=== PATIENT | female | born 1985 | race Caucasian/White ===

== ENCOUNTER 2017-02-24 13:49 | Inpatient (IN) | payer OTHER ==
[2017-02-24 14:17] VITALS: BMI 26.4
--- NOTE | 2017-02-24 15:33 | HP ---
Admission ROS [facility] Chief Complaint: I was at [facility] detox for 5 days and here for rehab now. Allergies/Adverse Reactions: Allergies Allergy/AdvReac Type Severity Reaction Status Date / Time No Known Allergies Allergy Verified 02/24/17 14:30 History of Present Illness: pt is a 31yr old female with a history of heroin and xanax dependence seeking detox for treatment. pt was on a suboxone maintenance last taken yesterday was on it while in care home and now wants to continue the maintenance. pt states she prescribed suboxone from psych Dr. Judd at [facility] for maintenance. Exam Limitations: No Limitations - Ebola screening Have you traveled outside of the country in the last 21 days: No (N) Have you had contact with anyone from an Ebola affected area: No Have you been sick,other than usual withdrawal symptoms: No Do you have a fever: No - Review of Systems Constitutional: Chills, Diaphoresis, Loss of Appetite EENT: reports: Tearing, Nose Congestion Respiratory: reports: No Symptoms reported Cardiac: reports: No Symptoms Reported GI: reports: Poor Appetite, Poor Fluid Intake : reports: No Symptoms Reported Musculoskeletal: reports: Back Pain Integumentary: reports: Flushing, Sweating Endocrine: reports: Excessive Sweating, Flushing, Intolerance to Cold, Intolerance to Heat Hematology: reports: No Symptoms Reported Psychiatric: reports: Judgement Intact, Mood/Affect Appropiate, Orientated x3, Agitated, Anxious Other Systems: Reviewed and Negative Patient History - Patient Medical History Hx Anemia: No Hx Asthma: No Hx Chronic Obstructive Pulmonary Disease (COPD): No Hx Cancer: No Hx Cardiac Disorders: No Hx Congestive Heart Failure: No Hx Hypertension: No Hx Hypercholesterolemia: No Hx Pacemaker: No HX Cerebrovascular Accident: No Hx Seizures: No Hx Dementia: No Hx Diabetes: No Hx Gastrointestinal Disorders: No Hx Liver Disease: No Hx Genitourinary Disorders: No Hx Sexually Transmitted Disorders: No Hx Renal Disease (ESRD): No Hx Thyroid Disease: No Hx Human Immunodeficiency Virus (HIV): No Hx Hepatitis C: No Hx Depression: Yes Hx Suicide Attempt: No (denies) Hx Bipolar Disorder: Yes Hx Schizophrenia: No - Patient Surgical History Past Surgical History: Yes Hx Neurologic Surgery: No Hx Cataract Extraction: No Hx Cardiac Surgery: No Hx Lung Surgery: No Hx Breast Surgery: Yes (LEFT 2005) Hx Breast Biopsy: No Hx Abdominal Surgery: No Hx Appendectomy: No Hx Cholecystectomy: No Hx Genitourinary Surgery: No Hx Section: No Hx Orthopedic Surgery: No Hx Hysterectomy: No Anesthesia Reaction: No - PPD History Previous Implant?: Yes Documented Results: Negative w/o proof PPD to be Administered?: Yes - Reproductive History Patient is a Female of Child Bearing Age (11 -55 yrs old): Yes Last Menstrual Period: 02/19/17 Patient : No - Smoking Cessation Smoking history: Current every day smoker Have you smoked in the past 12 months: Yes Aproximately how many cigarettes per day: 20 Cigars Per Day: 0 Hx Chewing Tobacco Use: No Initiated information on smoking cessation: Yes 'Breaking Loose' booklet given: 02/24/17 - Substance & Tx. History Substance Use Type: Heroin, Opiates, Prescribed Hx Substance Use Treatment: [facility]) - Substances Abused Heroin Route: Inhalation Frequency: Daily Amount used: 30 bags Age of first use: 28 Date of Last Use: 02/22/17 Family Disease History - Family Disease History Family History: Denies Admission Physical Exam [facility] - Vital Signs Vital Signs: Vital Signs - 24 hr 02/24/17 14:12 Temperature 97.8 F Pulse Rate 103 H Respiratory 18 Rate Blood Pressure 120/72 - Physical General Appearance: Yes: Appropriately Dressed, Moderate Distress, Tremorous, Irritable, Sweating, Anxious HEENTM: Yes: Hearing grossly Normal, Normal Voice, Rhinorrhea Respiratory: Yes: Lungs Clear, Normal Breath Sounds, No Respiratory Distress Neck: Yes: No masses,lesions,Nodules Breast: Yes: Within Normal Limits Cardiology: Yes: Regular Rhythm, Regular Rate, S1, S2 Abdominal: Yes: Normal Bowel Sounds Genitourinary: Yes: Within Normal Limits Back: Yes: Normal Inspection Musculoskeletal: Yes: full range of Motion Extremities: Yes: Normal Capillary Refill, Non-Tender, Tremors Neurological: Yes: Fully Oriented, Alert, Normal Response Integumentary: Yes: Normal Color Lymphatic: Yes: Within Normal Limits - Diagnostic (1) Alcohol dependence in early, early partial, sustained full, or sustained partial remission Current Visit: Yes Status: Chronic (2) Heroin use disorder, moderate, in early remission, dependence Current Visit: Yes Status: Chronic (3) Xanax use disorder, moderate, in early remission, dependence Current Visit: Yes Status: Chronic (4) Marijuana dependence Current Visit: Yes Status: Chronic (5) Nicotine dependence Current Visit: Yes Status: Chronic Qualifiers: Nicotine product type: cigarettes Substance use status: uncomplicated Qualified Code(s): F17.210 - Nicotine dependence, cigarettes, uncomplicated Cleared for Admission [facility] - Detox or Rehab [facility] Level of Care: Medically Managed Claeared for Rehab Admission: Yes [facility] Breath Alcohol Content Breath Alcohol Content: 0 Urine Pregancy Test - Result Urine Test Results: Negative- NO Line Present Urine Drug Screen - Results Drug Screen Negative: No Urine Drug Screen Results: BZO-Benzodiazepines Inpatient Rehab Admission - Initial Determination Are CD services needed?: Yes Free of communicable disease: Yes Not in need of hospitalization: Yes - Rehab Admission Criteria Previous failed treatment: Yes Lacks judgement: Yes
[2017-02-24] MEDS ORDERED: P-EPHED 60MG/TRIPROLIDI 2.5MG TABLET PO PRN (15:38)
[2017-02-24] MEDS ORDERED: ACETAMINOPHEN 325 MG TABLET (FP) PO PRN (15:38)
[2017-02-24] MEDS ORDERED: MENTHOL/PHENOL 1 EACH UD MM PRN (15:38)
[2017-02-24] MEDS ORDERED: MAGNESIUM CITRATE 300 ML BOTTLE PO PRN (15:38)
[2017-02-24] MEDS ORDERED: LOPERAMIDE HCL 2 MG CAPSULE PO PRN (15:38)
[2017-02-24] MEDS ORDERED: hydrOXYzine PAMOATE 50 MG CAPSULE (FP) PO PRN (15:38)
[2017-02-24] MEDS ORDERED: MAG HYDROX/AL HYDROX/SIMETH 30 ML UNIT-DOSE CUP PO PRN (15:38)
[2017-02-24] MEDS ORDERED: guaiFENesin/D-METHORPHAN HB 10 ML UNIT-DOSE CUPS PO PRN (15:38)
[2017-02-24] MEDS ORDERED: MAGNESIUM HYDROX 2400MG/30ML ORAL SUSPENSION 30 ML CUP PO PRN (15:38)
[2017-02-24] MEDS ORDERED: BUPRENORPHINE/NALOXONE 2 MG/0.5 MG FILM PACKET SL ONE (16:45)
[2017-02-24 17:44] LABS: MCH 36.1 pg (25.7-33.7); MCHC 34.7 g/dl (32.0-36.0); MEAN CELL VOLUME 103.9 fl (80-96); MEAN PLT VOLUME 8.8 fl (7.5-11.1); PLATELET COUNT 282 K/MM3 (134-434); RDW 12.3 % (11.6-15.6); WHITE BLOOD COUNT 10.9 K/mm3 (4.0-10.0)
[2017-02-24 18:13] LABS: ALBUMIN 3.3 g/dl (3.4-5.0); ALK PHOS 78 U/L (45-117); ANION GAP 7 (8-16); BILIRUBIN,TOTAL 0.1 mg/dL (0.2-1.0); CALCIUM 8.3 mg/dL (8.5-10.1); CO2 30 mmol/L (21-32); CREATININE 0.6 mg/dL (0.55-1.02); GLUCOSE,RANDOM 104 mg/dL (74-106); SGOT/AST 31 U/L (15-37); SGPT/ALT 23 U/L (12-78); TOT PROT 6.8 g/dl (6.4-8.2)
[2017-02-24] MEDS ORDERED: TUBERCULIN PPD 5 TU/0.1ML VIAL ID ONE (18:28)
--- NOTE | 2017-02-24 18:32 | PN ---
[facility] Progress Note Note: received nurse call that the patient needs ppd
[2017-02-24] MEDS ORDERED: QUEtiapine FUMARATE 400 MG TABLET PO ONE (22:15)
[2017-02-24] MEDS: THIAMINE HCL 100 MG TABLET (FP) PO SCH (22:29)
[2017-02-24 23:30] LABS: URINE APPEARANCE CLOUDY; URINE BILIRUBIN NEGATIVE (NEGATIVE); URINE BLOOD NEGATIVE (NEGATIVE); URINE COLOR YELLOW; URINE GLUCOSE (UA) NEGATIVE (NEGATIVE); URINE KETONE NEGATIVE (NEGATIVE); URINE NITRITE NEGATIVE (NEGATIVE); URINE PROTEIN NEGATIVE (NEGATIVE); URINE UROBILINOGEN NEGATIVE mg/dL (0.2-1.0)
[2017-02-25] MEDS: NICOTINE 21 MG/24 HOURS TOPICAL PATCH TD SCH (09:44)
[2017-02-25] MEDS: PRENATAL VITAMINS W/ FOLIC ACID TABLET (FP) PO SCH (09:44)
[2017-02-25] MEDS ORDERED: BUPRENORPHINE/NALOXONE 2 MG/0.5 MG FILM PACKET SL SCH (10:00)
--- NOTE | 2017-02-25 10:27 | HP ---
Psychiatrist Admission - Data Date of interview: 02/25/17 [facility] Identifying data: This is the second admission to [address] [place] [address] FOR THIS 31 years old single mother of 2 yo daughter,resides with her mother,empoyed as a hair dressor. Medical History: unremarkable Psychiatric History: Patient reports some sleeping difficulties on and off, states thating that SEroquel helped to fall asleep .Patient was obtaining SAeroquel 400 mg po hs from her PCP,but states that last night she was drowsy after taking 400 mg po hs and asks to redusce the dose. Physical/Sexual Abuse/Trauma History: denies Vital Signs: Vital Signs - 24 hr 02/24/17 02/25/17 02/25/17 14:12 00:30 03:30 Temperature 97.8 F Pulse Rate 103 H Respiratory 18 16 16 Rate Blood Pressure 120/72 02/25/17 07:11 Temperature 98.5 F Pulse Rate 93 H Respiratory 16 Rate Blood Pressure 96/62 Allergies/Adverse Reactions: Allergies Allergy/AdvReac Type Severity Reaction Status Date / Time No Known Allergies Allergy Verified 02/24/17 14:30 Date of last physical exam: 02/24/17 Concur with the findings of this exam: Yes - Substance Abuse/Tx History Hx Alcohol Use: Yes (cengmi0da since 24 yo,6 packs daily) Hx Substance Use: Yes (heroin since 29 yo,sniffing 5 bags daily,Xanax since 27 yo 2 mg 5 times da ) Substance Use Type: Alcohol, Heroin, Marijuana, Tranquilizers Hx Substance Use Treatment: Yes (completed this program in Dec 2015) Mental Status Exam - Mental Status Exam Alert and Oriented to: Time, Place, Person Cognitive Function: Grossly Intact Patient Appearance: Well Groomed Mood: Euthymic Affect: Appropriate, Mood Congruent Patient Behavior: Appropriate, Cooperative Speech Pattern: Clear Voice Loudness: Normal Thought Process: Goal Oriented Thought Disorder: Not Present Hallucinations: Denies Suicidal Ideation: Denies Homicidal Ideation: Denies Insight/Judgement: Fair Sleep: Well Muscle strength/Tone: Normal Gait/Station: Normal Psychiatric Findings - Problem List ([place] 1, 2,3) (1) Nicotine dependence Current Visit: Yes Status: Chronic Qualifiers: Nicotine product type: cigarettes Substance use status: uncomplicated Qualified Code(s): F17.210 - Nicotine dependence, cigarettes, uncomplicated (2) Marijuana dependence Current Visit: Yes Status: Chronic (3) Anxiolytic dependence Current Visit: Yes Status: Acute (4) Alcohol dependence in early, early partial, sustained full, or sustained partial remission Current Visit: Yes Status: Chronic (5) Opioid dependence Current Visit: Yes Status: Chronic Qualifiers: Substance use status: uncomplicated Qualified Code(s): F11.20 - Opioid dependence, uncomplicated (6) Substance induced mood disorder Current Visit: Yes Status: Chronic - Initial Treatment Plan Initial Treatment Plan: Seroquel 300 mg po hs.Will monitor progress.
--- NOTE | 2017-02-25 10:32 | EKG ---
Test Reason : Blood Pressure : / mmHG Vent. Rate : 093 BPM Atrial Rate : 093 BPM P-R Int : 176 ms QRS Dur : 102 ms QT Int : 376 ms P-R-T Axes : 057 035 054 degrees QTc Int : 467 ms NORMAL SINUS RHYTHM INCOMPLETE RIGHT BUNDLE BRANCH BLOCK BORDERLINE ECG NO PREVIOUS ECGS AVAILABLE Confirmed by RADHA SORTO MD ([id number]) on 02/25/2017 10:32:10 AM Referred By: MATTHIAS SHEPHERD Confirmed By:RADHA SORTO MD
--- NOTE | 2017-02-25 10:56 | PN ---
[facility] Progress Note (SOAP) Subjective: c/o opioid withdrawal sx s/p detox at [facility] - started on suboxone 2mg daily still has cravings and physical withdrawal sx, anxieyt, depression, fatigue and insomnia would like to increase dose Objective: 02/25/17 10:55 Vital Signs - 8 hr 02/25/17 02/25/17 03:30 07:11 Temperature 98.5 F Pulse Rate 93 H Respiratory 16 16 Rate Blood Pressure 96/62 Laboratory Tests 02/24/17 02/24/17 02/24/17 16:00 16:00 22:00 WBC 10.9 H D RBC 3.69 Hgb 13.3 Hct 38.3 MCV 103.9 H MCH 36.1 H MCHC 34.7 RDW 12.3 D Plt Count 282 MPV 8.8 D Sodium 137 Potassium 3.7 Chloride 100 Carbon Dioxide 30 Anion Gap 7 L BUN 11 D Creatinine 0.6 Creat Clearance w eGFR > 60 Random Glucose 104 D Calcium 8.3 L Total Bilirubin 0.1 L D AST 31 D ALT 23 D Alkaline Phosphatase 78 Total Protein 6.8 Albumin 3.3 L D Urine Color Yellow Urine Appearance Cloudy Urine pH 8.0 D Ur Specific [place] 1.009 Urine Protein Negative Urine Glucose (UA) Negative Urine Ketones Negative Urine Blood Negative Urine Nitrite Negative Urine Bilirubin Negative Urine Urobilinogen Negative Assessment: 02/25/17 10:55 lfts wnl, can increase dose- needs appointment scheduled for follow up at [facility]/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 risks and benefits discussed
[2017-02-25] MEDS ORDERED: BUPRENORPHINE/NALOXONE 2 MG/0.5 MG FILM PACKET SL ONE (10:57)
[2017-02-25 11:42] LABS: URINE LEUK ESTERASE TRACE (NEGATIVE)
[2017-02-25] MEDS: NICOTINE POLACRILEX 4 MG GUM BUC PRN ×2 (11:59→14:43)
[2017-02-25 12:41] LABS: URINE MUCUS FEW; URINE WBC 0-2 (0-5)
[2017-02-25] MEDS: GABAPENTIN 300 MG CAPSULE (FP) PO SCH ×2 (13:06→21:22)
[2017-02-25 13:14] LABS: URINE LEUK ESTERASE TRACE (NEGATIVE)
[2017-02-25 14:38] LABS: URINE MUCUS FEW; URINE WBC 0-2 (0-5)
[2017-02-25] MEDS: THIAMINE HCL 100 MG TABLET (FP) PO SCH (21:21)
[2017-02-25] MEDS: QUEtiapine FUMARATE 300 MG TABLET PO SCH (21:23)
[2017-02-25] MEDS ORDERED: QUEtiapine FUMARATE 400 MG TABLET PO SCH (22:00)
[2017-02-26] MEDS: GABAPENTIN 300 MG CAPSULE (FP) PO SCH ×3 (06:32→21:24)
[2017-02-26] MEDS: NICOTINE POLACRILEX 4 MG GUM BUC PRN ×5 (08:50→17:27)
[2017-02-26] MEDS: BUPRENORPHINE/NALOXONE 2 MG/0.5 MG FILM PACKET SL SCH (09:57)
[2017-02-26] MEDS: PRENATAL VITAMINS W/ FOLIC ACID TABLET (FP) PO SCH (09:57)
[2017-02-26] MEDS: NICOTINE 21 MG/24 HOURS TOPICAL PATCH TD SCH (09:57)
[2017-02-26] MEDS: COLLOIDAL OATMEAL 1 BAR EACH TP PRN (13:15)
[2017-02-26] MEDS: MINERAL OIL/PETROLAT/WATER TOPICAL CREAM 113 GM JAR TP SCH ×2 (15:49→21:25)
[2017-02-26] MEDS: QUEtiapine FUMARATE 300 MG TABLET PO SCH (21:24)
[2017-02-26] MEDS: THIAMINE HCL 100 MG TABLET (FP) PO SCH (21:24)
[2017-02-26] MEDS: CLINDAMYCIN PHOSPHATE 1% TOPICAL GEL 30 GM TUBE TP SCH (21:25)
[2017-02-27] MEDS: GABAPENTIN 300 MG CAPSULE (FP) PO SCH ×3 (06:30→21:38)
[2017-02-27] MEDS: NICOTINE POLACRILEX 4 MG GUM BUC PRN ×5 (06:31→18:32)
[2017-02-27] MEDS ORDERED: PT OWN MED DRAWER 7, Y5N ONE ×2 (08:32→19:24)
[2017-02-27] MEDS: PRENATAL VITAMINS W/ FOLIC ACID TABLET (FP) PO SCH (09:55)
[2017-02-27] MEDS: NICOTINE 21 MG/24 HOURS TOPICAL PATCH TD SCH (09:55)
[2017-02-27] MEDS: CLINDAMYCIN PHOSPHATE 1% TOPICAL GEL 30 GM TUBE TP SCH ×2 (09:56→21:38)
[2017-02-27] MEDS: MINERAL OIL/PETROLAT/WATER TOPICAL CREAM 113 GM JAR TP SCH ×2 (09:56→21:37)
[2017-02-27] MEDS: BUPRENORPHINE/NALOXONE 2 MG/0.5 MG FILM PACKET SL SCH (09:56)
[2017-02-27] MEDS ORDERED: BUPRENORPHINE/NALOXONE 2 MG/0.5 MG FILM PACKET SL ONE (14:19)
[2017-02-27] MEDS: THIAMINE HCL 100 MG TABLET (FP) PO SCH (21:38)
[2017-02-27] MEDS: QUEtiapine FUMARATE 400 MG TABLET PO SCH (21:39)
[2017-02-28] MEDS: GABAPENTIN 300 MG CAPSULE (FP) PO SCH ×3 (06:36→21:29)
[2017-02-28] MEDS ORDERED: PT OWN MED DRAWER 7, Y5N ONE (08:48)
[2017-02-28] MEDS: NICOTINE POLACRILEX 4 MG GUM BUC PRN ×5 (08:57→18:43)
[2017-02-28] MEDS: BUPRENORPHINE/NALOXONE 8 MG/2 MG FILM PACKET SL SCH (09:57)
[2017-02-28] MEDS: NICOTINE 21 MG/24 HOURS TOPICAL PATCH TD SCH (09:57)
[2017-02-28] MEDS: PRENATAL VITAMINS W/ FOLIC ACID TABLET (FP) PO SCH (09:57)
[2017-02-28] MEDS: CLINDAMYCIN PHOSPHATE 1% TOPICAL GEL 30 GM TUBE TP SCH ×2 (09:57→21:30)
[2017-02-28] MEDS: MINERAL OIL/PETROLAT/WATER TOPICAL CREAM 113 GM JAR TP SCH ×2 (09:58→21:29)
[2017-02-28] MEDS: BUPRENORPHINE/NALOXONE 2 MG/0.5 MG FILM PACKET SL SCH (11:20)
[2017-02-28] MEDS: THIAMINE HCL 100 MG TABLET (FP) PO SCH (21:28)
[2017-02-28] MEDS: QUEtiapine FUMARATE 400 MG TABLET PO SCH (21:29)
[2017-03-01] MEDS: GABAPENTIN 300 MG CAPSULE (FP) PO SCH ×3 (06:50→21:24)
[2017-03-01] MEDS: NICOTINE POLACRILEX 4 MG GUM BUC PRN ×4 (06:50→18:53)
[2017-03-01] MEDS ORDERED: PT OWN MED DRAWER 7, Y5N ONE ×2 (09:03→10:37)
[2017-03-01] MEDS: PRENATAL VITAMINS W/ FOLIC ACID TABLET (FP) PO SCH (10:21)
[2017-03-01] MEDS: BUPRENORPHINE/NALOXONE 8 MG/2 MG FILM PACKET SL SCH (10:21)
[2017-03-01] MEDS: NICOTINE 21 MG/24 HOURS TOPICAL PATCH TD SCH (10:21)
[2017-03-01] MEDS: MINERAL OIL/PETROLAT/WATER TOPICAL CREAM 113 GM JAR TP SCH ×2 (10:22→21:26)
[2017-03-01] MEDS: CLINDAMYCIN PHOSPHATE 1% TOPICAL GEL 30 GM TUBE TP SCH ×2 (10:22→21:26)
[2017-03-01] MEDS ORDERED: ONDANSETRON *ODT* 4 MG TABLET SL PRN (12:37)
[2017-03-01] MEDS ORDERED: MECLIZINE HCL 25 MG TABLET (FP) PO PRN (12:37)
[2017-03-01] MEDS: THIAMINE HCL 100 MG TABLET (FP) PO SCH (21:23)
[2017-03-01] MEDS: QUEtiapine FUMARATE 400 MG TABLET PO SCH (21:24)
[2017-03-02] MEDS: NICOTINE POLACRILEX 4 MG GUM BUC PRN ×6 (06:44→21:28)
[2017-03-02] MEDS: GABAPENTIN 300 MG CAPSULE (FP) PO SCH ×3 (06:44→21:26)
[2017-03-02] MEDS ORDERED: PT OWN MED DRAWER 7, Y5N ONE (08:32)
[2017-03-02] MEDS: PRENATAL VITAMINS W/ FOLIC ACID TABLET (FP) PO SCH (09:02)
[2017-03-02] MEDS: NICOTINE 21 MG/24 HOURS TOPICAL PATCH TD SCH (09:03)
[2017-03-02] MEDS: BUPRENORPHINE/NALOXONE 8 MG/2 MG FILM PACKET SL SCH (09:03)
[2017-03-02] MEDS: CLINDAMYCIN PHOSPHATE 1% TOPICAL GEL 30 GM TUBE TP SCH ×2 (09:03→21:27)
[2017-03-02] MEDS: MINERAL OIL/PETROLAT/WATER TOPICAL CREAM 113 GM JAR TP SCH ×2 (09:09→21:27)
[2017-03-02] MEDS: QUEtiapine FUMARATE 400 MG TABLET PO SCH (21:26)
[2017-03-02] MEDS: THIAMINE HCL 100 MG TABLET (FP) PO SCH (21:26)
[2017-03-02] MEDS: IBUPROFEN 400 MG TABLET (FP) PO PRN (21:28)
[2017-03-03] MEDS: GABAPENTIN 300 MG CAPSULE (FP) PO SCH ×3 (06:27→21:25)
[2017-03-03] MEDS: IBUPROFEN 400 MG TABLET (FP) PO PRN ×2 (06:28→13:12)
[2017-03-03] MEDS: NICOTINE POLACRILEX 4 MG GUM BUC PRN ×5 (06:28→21:25)
[2017-03-03] MEDS ORDERED: PT OWN MED DRAWER 7, Y5N ONE ×3 (08:30→19:54)
[2017-03-03] MEDS: NICOTINE 21 MG/24 HOURS TOPICAL PATCH TD SCH (09:06)
[2017-03-03] MEDS: PRENATAL VITAMINS W/ FOLIC ACID TABLET (FP) PO SCH (09:06)
[2017-03-03] MEDS: BUPRENORPHINE/NALOXONE 8 MG/2 MG FILM PACKET SL SCH (09:07)
[2017-03-03] MEDS: CLINDAMYCIN PHOSPHATE 1% TOPICAL GEL 30 GM TUBE TP SCH ×2 (09:07→21:27)
[2017-03-03] MEDS: MINERAL OIL/PETROLAT/WATER TOPICAL CREAM 113 GM JAR TP SCH ×2 (09:07→21:26)
--- NOTE | 2017-03-03 09:28 | PN ---
[facility] Progress Note Note: Was called by nurse to order Effexor 75 mg, as per reconciliation list. Chart reviewed 's admission note appreciated. Order was placed.
[2017-03-03] MEDS: VENLAFAXINE HCL 75 MG E.R. CAPSULES (FP) PO SCH (10:31)
[2017-03-03] MEDS ORDERED: BUPRENORPHINE/NALOXONE 2 MG/0.5 MG FILM PACKET SL ONE (15:37)
--- NOTE | 2017-03-03 15:37 | PN ---
[facility] Progress Note (SOAP) Subjective: would like to increase dose of suboxone, has cravings, desire to use, drug dreams - appot for [facility] scheduled for d/c Objective: 03/03/17 15:36 Vital Signs - 24 hr 03/03/17 03/03/17 03/03/17 00:30 03:30 07:08 Temperature 97.8 F Pulse Rate 78 Respiratory 18 18 18 Rate Blood Pressure 92/63 Laboratory Tests 02/24/17 02/24/17 02/24/17 16:00 16:00 16:00 WBC 10.9 H D RBC 3.69 Hgb 13.3 Hct 38.3 MCV 103.9 H MCH 36.1 H MCHC 34.7 RDW 12.3 D Plt Count 282 MPV 8.8 D Sodium 137 Potassium 3.7 Chloride 100 Carbon Dioxide 30 Anion Gap 7 L BUN 11 D Creatinine 0.6 Creat Clearance w eGFR > 60 Random Glucose 104 D Calcium 8.3 L Total Bilirubin 0.1 L D AST 31 D ALT 23 D Alkaline Phosphatase 78 Total Protein 6.8 Albumin 3.3 L D Urine Color Urine Appearance Urine pH Ur Specific [place] Urine Protein Urine Glucose (UA) Urine Ketones Urine Blood Urine Nitrite Urine Bilirubin Urine Urobilinogen Ur Leukocyte Esterase Urine RBC Urine WBC Ur Epithelial Cells Urine Mucus RPR Titer Nonreactive 02/24/17 02/24/17 22:00 22:00 WBC RBC Hgb Hct MCV MCH MCHC RDW Plt Count MPV Sodium Potassium Chloride Carbon Dioxide Anion Gap BUN Creatinine Creat Clearance w eGFR Random Glucose Calcium Total Bilirubin AST ALT Alkaline Phosphatase Total Protein Albumin Urine Color Yellow Urine Appearance Cloudy Urine pH 8.0 D Ur Specific [place] 1.009 Urine Protein Negative Urine Glucose (UA) Negative Urine Ketones Negative Urine Blood Negative Urine Nitrite Negative Urine Bilirubin Negative Urine Urobilinogen Negative Ur Leukocyte Esterase Trace H Urine RBC No Result Required. No Result Required. Urine WBC 0-2 0-2 Ur Epithelial Cells Few Few Urine Mucus Few Few RPR Titer Assessment: 03/03/17 15:37protracted opioid withdrawal and cravings - increase dose to 12mg daily.
[2017-03-03] MEDS: CYCLOBENZAPRINE HCL 10 MG TABLET (FP) PO SCH ×2 (16:02→21:25)
[2017-03-03] MEDS: THIAMINE HCL 100 MG TABLET (FP) PO SCH (21:25)
[2017-03-03] MEDS: AMITRIPTYLINE HCL 25 MG TABLET (FP) PO SCH (21:25)
[2017-03-03] MEDS: QUEtiapine FUMARATE 400 MG TABLET PO SCH (21:25)
[2017-03-04] MEDS: IBUPROFEN 400 MG TABLET (FP) PO PRN (06:31)
[2017-03-04] MEDS: GABAPENTIN 300 MG CAPSULE (FP) PO SCH ×3 (06:31→21:26)
[2017-03-04] MEDS: CYCLOBENZAPRINE HCL 10 MG TABLET (FP) PO SCH ×3 (06:31→21:26)
[2017-03-04] MEDS: NICOTINE POLACRILEX 4 MG GUM BUC PRN ×4 (06:32→16:38)
[2017-03-04] MEDS: PRENATAL VITAMINS W/ FOLIC ACID TABLET (FP) PO SCH (10:11)
[2017-03-04] MEDS: VENLAFAXINE HCL 75 MG E.R. CAPSULES (FP) PO SCH (10:11)
[2017-03-04] MEDS: CLINDAMYCIN PHOSPHATE 1% TOPICAL GEL 30 GM TUBE TP SCH ×2 (10:11→21:28)
[2017-03-04] MEDS: BUPRENORPHINE HCL/NALOXONE 12 MG-3 MG SL FILM PACKET SL SCH (10:11)
[2017-03-04] MEDS: NICOTINE 21 MG/24 HOURS TOPICAL PATCH TD SCH (10:11)
[2017-03-04] MEDS: MINERAL OIL/PETROLAT/WATER TOPICAL CREAM 113 GM JAR TP SCH ×2 (10:12→23:29)
[2017-03-04] MEDS ORDERED: PT OWN MED DRAWER 7, Y5N ONE ×2 (10:58→11:05)
[2017-03-04] MEDS: THIAMINE HCL 100 MG TABLET (FP) PO SCH (21:26)
[2017-03-04] MEDS: AMITRIPTYLINE HCL 25 MG TABLET (FP) PO SCH (21:26)
[2017-03-04] MEDS: QUEtiapine FUMARATE 400 MG TABLET PO SCH (21:26)
[2017-03-05] MEDS: CYCLOBENZAPRINE HCL 10 MG TABLET (FP) PO SCH ×3 (06:46→21:25)
[2017-03-05] MEDS: IBUPROFEN 400 MG TABLET (FP) PO PRN (06:46)
[2017-03-05] MEDS: GABAPENTIN 300 MG CAPSULE (FP) PO SCH ×3 (06:46→21:25)
[2017-03-05] MEDS: NICOTINE POLACRILEX 4 MG GUM BUC PRN ×3 (06:47→13:04)
[2017-03-05] MEDS: BUPRENORPHINE HCL/NALOXONE 12 MG-3 MG SL FILM PACKET SL SCH (09:52)
[2017-03-05] MEDS: NICOTINE 21 MG/24 HOURS TOPICAL PATCH TD SCH (09:52)
[2017-03-05] MEDS: PRENATAL VITAMINS W/ FOLIC ACID TABLET (FP) PO SCH (09:52)
[2017-03-05] MEDS: VENLAFAXINE HCL 75 MG E.R. CAPSULES (FP) PO SCH (09:52)
[2017-03-05] MEDS: MINERAL OIL/PETROLAT/WATER TOPICAL CREAM 113 GM JAR TP SCH ×2 (09:53→21:25)
[2017-03-05] MEDS: CLINDAMYCIN PHOSPHATE 1% TOPICAL GEL 30 GM TUBE TP SCH ×2 (10:05→21:25)
[2017-03-05] MEDS: AMITRIPTYLINE HCL 25 MG TABLET (FP) PO SCH (21:25)
[2017-03-05] MEDS: QUEtiapine FUMARATE 400 MG TABLET PO SCH (21:25)
[2017-03-05] MEDS: THIAMINE HCL 100 MG TABLET (FP) PO SCH (21:25)
[2017-03-06] MEDS: GABAPENTIN 300 MG CAPSULE (FP) PO SCH ×2 (06:38→21:34)
[2017-03-06] MEDS: CYCLOBENZAPRINE HCL 10 MG TABLET (FP) PO SCH ×2 (06:38→21:34)
[2017-03-06] MEDS: NICOTINE POLACRILEX 4 MG GUM BUC PRN ×4 (06:39→20:01)
[2017-03-06] MEDS ORDERED: PT OWN MED DRAWER 7, Y5N ONE (08:34)
[2017-03-06] MEDS: BUPRENORPHINE HCL/NALOXONE 12 MG-3 MG SL FILM PACKET SL SCH (10:09)
[2017-03-06] MEDS: MINERAL OIL/PETROLAT/WATER TOPICAL CREAM 113 GM JAR TP SCH ×2 (10:10→21:36)
[2017-03-06] MEDS: NICOTINE 21 MG/24 HOURS TOPICAL PATCH TD SCH (10:10)
[2017-03-06] MEDS: PRENATAL VITAMINS W/ FOLIC ACID TABLET (FP) PO SCH (10:10)
[2017-03-06] MEDS: CLINDAMYCIN PHOSPHATE 1% TOPICAL GEL 30 GM TUBE TP SCH ×2 (10:10→21:36)
[2017-03-06] MEDS: VENLAFAXINE HCL 75 MG E.R. CAPSULES (FP) PO SCH (10:10)
[2017-03-06] MEDS: THIAMINE HCL 100 MG TABLET (FP) PO SCH (21:34)
[2017-03-06] MEDS: AMITRIPTYLINE HCL 25 MG TABLET (FP) PO SCH (21:34)
[2017-03-06] MEDS: QUEtiapine FUMARATE 400 MG TABLET PO SCH (21:36)
[2017-03-07] MEDS: IBUPROFEN 400 MG TABLET (FP) PO PRN (06:46)
[2017-03-07] MEDS: GABAPENTIN 300 MG CAPSULE (FP) PO SCH ×4 (06:46→21:21)
[2017-03-07] MEDS: CYCLOBENZAPRINE HCL 10 MG TABLET (FP) PO SCH ×4 (06:47→21:21)
[2017-03-07] MEDS: NICOTINE POLACRILEX 4 MG GUM BUC PRN ×6 (06:47→21:24)
[2017-03-07] MEDS: VENLAFAXINE HCL 75 MG E.R. CAPSULES (FP) PO SCH (09:48)
[2017-03-07] MEDS: NICOTINE 21 MG/24 HOURS TOPICAL PATCH TD SCH (09:48)
[2017-03-07] MEDS: PRENATAL VITAMINS W/ FOLIC ACID TABLET (FP) PO SCH (09:48)
[2017-03-07] MEDS: CLINDAMYCIN PHOSPHATE 1% TOPICAL GEL 30 GM TUBE TP SCH ×2 (09:49→21:23)
[2017-03-07] MEDS: BUPRENORPHINE HCL/NALOXONE 12 MG-3 MG SL FILM PACKET SL SCH (09:51)
[2017-03-07] MEDS: MINERAL OIL/PETROLAT/WATER TOPICAL CREAM 113 GM JAR TP SCH ×2 (10:54→21:22)
[2017-03-07] MEDS ORDERED: PT OWN MED DRAWER 7, Y5N ONE (19:30)
[2017-03-07] MEDS: AMITRIPTYLINE HCL 25 MG TABLET (FP) PO SCH (21:21)
[2017-03-07] MEDS: QUEtiapine FUMARATE 400 MG TABLET PO SCH (21:21)
[2017-03-07] MEDS: THIAMINE HCL 100 MG TABLET (FP) PO SCH (22:05)
[2017-03-08] MEDS: CYCLOBENZAPRINE HCL 10 MG TABLET (FP) PO SCH ×3 (06:37→21:22)
[2017-03-08] MEDS: GABAPENTIN 300 MG CAPSULE (FP) PO SCH ×3 (06:38→21:22)
[2017-03-08] MEDS: NICOTINE POLACRILEX 4 MG GUM BUC PRN ×7 (06:38→21:23)
[2017-03-08] MEDS: BUPRENORPHINE HCL/NALOXONE 12 MG-3 MG SL FILM PACKET SL SCH (09:28)
[2017-03-08] MEDS: CLINDAMYCIN PHOSPHATE 1% TOPICAL GEL 30 GM TUBE TP SCH ×2 (09:28→21:22)
[2017-03-08] MEDS: NICOTINE 21 MG/24 HOURS TOPICAL PATCH TD SCH (09:28)
[2017-03-08] MEDS: MINERAL OIL/PETROLAT/WATER TOPICAL CREAM 113 GM JAR TP SCH ×2 (09:28→21:23)
[2017-03-08] MEDS: PRENATAL VITAMINS W/ FOLIC ACID TABLET (FP) PO SCH (09:28)
[2017-03-08] MEDS: VENLAFAXINE HCL 75 MG E.R. CAPSULES (FP) PO SCH (09:28)
[2017-03-08] MEDS: AMITRIPTYLINE HCL 25 MG TABLET (FP) PO SCH (21:22)
[2017-03-08] MEDS: THIAMINE HCL 100 MG TABLET (FP) PO SCH (21:22)
[2017-03-08] MEDS: QUEtiapine FUMARATE 400 MG TABLET PO SCH (21:22)
[2017-03-09] MEDS: NICOTINE POLACRILEX 4 MG GUM BUC PRN ×6 (06:27→21:17)
[2017-03-09] MEDS: CYCLOBENZAPRINE HCL 10 MG TABLET (FP) PO SCH ×3 (06:27→21:15)
[2017-03-09] MEDS: GABAPENTIN 300 MG CAPSULE (FP) PO SCH ×3 (06:27→21:15)
[2017-03-09] MEDS: MINERAL OIL/PETROLAT/WATER TOPICAL CREAM 113 GM JAR TP SCH ×2 (09:48→21:17)
[2017-03-09] MEDS: BUPRENORPHINE HCL/NALOXONE 12 MG-3 MG SL FILM PACKET SL SCH (09:48)
[2017-03-09] MEDS: PRENATAL VITAMINS W/ FOLIC ACID TABLET (FP) PO SCH (09:48)
[2017-03-09] MEDS: VENLAFAXINE HCL 75 MG E.R. CAPSULES (FP) PO SCH (09:48)
[2017-03-09] MEDS: NICOTINE 21 MG/24 HOURS TOPICAL PATCH TD SCH (09:49)
[2017-03-09] MEDS: CLINDAMYCIN PHOSPHATE 1% TOPICAL GEL 30 GM TUBE TP SCH ×2 (09:50→21:17)
[2017-03-09] MEDS ORDERED: ALBUTEROL SO4 18 GM HFA INHALER IH PRN (14:21)
[2017-03-09] MEDS: THIAMINE HCL 100 MG TABLET (FP) PO SCH (21:15)
[2017-03-09] MEDS: QUEtiapine FUMARATE 400 MG TABLET PO SCH (21:15)
[2017-03-09] MEDS: AMITRIPTYLINE HCL 25 MG TABLET (FP) PO SCH (21:15)
[2017-03-10] MEDS: CYCLOBENZAPRINE HCL 10 MG TABLET (FP) PO SCH ×3 (06:29→21:29)
[2017-03-10] MEDS: GABAPENTIN 300 MG CAPSULE (FP) PO SCH ×3 (06:29→21:29)
[2017-03-10] MEDS: NICOTINE POLACRILEX 4 MG GUM BUC PRN ×5 (06:31→21:31)
[2017-03-10] MEDS: VENLAFAXINE HCL 75 MG E.R. CAPSULES (FP) PO SCH (10:21)
[2017-03-10] MEDS: CLINDAMYCIN PHOSPHATE 1% TOPICAL GEL 30 GM TUBE TP SCH ×2 (10:21→21:29)
[2017-03-10] MEDS: MINERAL OIL/PETROLAT/WATER TOPICAL CREAM 113 GM JAR TP SCH ×2 (10:21→21:29)
[2017-03-10] MEDS: NICOTINE 21 MG/24 HOURS TOPICAL PATCH TD SCH (10:21)
[2017-03-10] MEDS: PRENATAL VITAMINS W/ FOLIC ACID TABLET (FP) PO SCH (10:21)
[2017-03-10] MEDS: BUPRENORPHINE HCL/NALOXONE 12 MG-3 MG SL FILM PACKET SL SCH (11:34)
[2017-03-10] MEDS: QUEtiapine FUMARATE 400 MG TABLET PO SCH (21:29)
[2017-03-10] MEDS: THIAMINE HCL 100 MG TABLET (FP) PO SCH (21:29)
[2017-03-10] MEDS: AMITRIPTYLINE HCL 25 MG TABLET (FP) PO SCH (21:29)
[2017-03-11] MEDS: NICOTINE POLACRILEX 4 MG GUM BUC PRN ×4 (06:09→17:43)
[2017-03-11] MEDS: CYCLOBENZAPRINE HCL 10 MG TABLET (FP) PO SCH ×3 (06:09→21:12)
[2017-03-11] MEDS: GABAPENTIN 300 MG CAPSULE (FP) PO SCH ×3 (06:09→21:12)
[2017-03-11] MEDS: VENLAFAXINE HCL 75 MG E.R. CAPSULES (FP) PO SCH (09:41)
[2017-03-11] MEDS: PRENATAL VITAMINS W/ FOLIC ACID TABLET (FP) PO SCH (09:41)
[2017-03-11] MEDS: NICOTINE 21 MG/24 HOURS TOPICAL PATCH TD SCH (09:41)
[2017-03-11] MEDS: MINERAL OIL/PETROLAT/WATER TOPICAL CREAM 113 GM JAR TP SCH ×2 (09:41→21:13)
[2017-03-11] MEDS: BUPRENORPHINE HCL/NALOXONE 12 MG-3 MG SL FILM PACKET SL SCH (09:42)
[2017-03-11] MEDS: CLINDAMYCIN PHOSPHATE 1% TOPICAL GEL 30 GM TUBE TP SCH ×2 (09:42→21:13)
[2017-03-11] MEDS: QUEtiapine FUMARATE 400 MG TABLET PO SCH (21:12)
[2017-03-11] MEDS: AMITRIPTYLINE HCL 25 MG TABLET (FP) PO SCH (21:12)
[2017-03-11] MEDS: THIAMINE HCL 100 MG TABLET (FP) PO SCH (21:14)
[2017-03-12] MEDS: CYCLOBENZAPRINE HCL 10 MG TABLET (FP) PO SCH ×3 (06:10→21:26)
[2017-03-12] MEDS: GABAPENTIN 300 MG CAPSULE (FP) PO SCH ×3 (06:10→21:26)
[2017-03-12] MEDS: NICOTINE POLACRILEX 4 MG GUM BUC PRN ×5 (06:11→17:37)
[2017-03-12] MEDS: BUPRENORPHINE HCL/NALOXONE 12 MG-3 MG SL FILM PACKET SL SCH (10:38)
[2017-03-12] MEDS: NICOTINE 21 MG/24 HOURS TOPICAL PATCH TD SCH (10:38)
[2017-03-12] MEDS: PRENATAL VITAMINS W/ FOLIC ACID TABLET (FP) PO SCH (10:38)
[2017-03-12] MEDS: VENLAFAXINE HCL 75 MG E.R. CAPSULES (FP) PO SCH (10:38)
[2017-03-12] MEDS: MINERAL OIL/PETROLAT/WATER TOPICAL CREAM 113 GM JAR TP SCH ×2 (10:42→21:28)
[2017-03-12] MEDS: CLINDAMYCIN PHOSPHATE 1% TOPICAL GEL 30 GM TUBE TP SCH ×2 (10:44→21:28)
[2017-03-12] MEDS: COLLOIDAL OATMEAL 1 BAR EACH TP PRN (13:15)
[2017-03-12] MEDS: IBUPROFEN 400 MG TABLET (FP) PO PRN (13:18)
[2017-03-12] MEDS: AMITRIPTYLINE HCL 25 MG TABLET (FP) PO SCH (21:26)
[2017-03-12] MEDS: QUEtiapine FUMARATE 400 MG TABLET PO SCH (21:26)
[2017-03-12] MEDS: THIAMINE HCL 100 MG TABLET (FP) PO SCH (21:27)
[2017-03-12] MEDS ORDERED: PT OWN MED DRAWER 7, Y5N ONE (23:07)
[2017-03-13] MEDS: CYCLOBENZAPRINE HCL 10 MG TABLET (FP) PO SCH ×3 (06:49→21:30)
[2017-03-13] MEDS: GABAPENTIN 300 MG CAPSULE (FP) PO SCH ×3 (06:49→21:29)
[2017-03-13] MEDS: NICOTINE POLACRILEX 4 MG GUM BUC PRN ×5 (06:50→15:31)
[2017-03-13] MEDS ORDERED: PT OWN MED DRAWER 7, Y5N ONE ×2 (08:31→11:02)
[2017-03-13] MEDS: BUPRENORPHINE HCL/NALOXONE 12 MG-3 MG SL FILM PACKET SL SCH (10:14)
[2017-03-13] MEDS: PRENATAL VITAMINS W/ FOLIC ACID TABLET (FP) PO SCH (10:14)
[2017-03-13] MEDS: NICOTINE 21 MG/24 HOURS TOPICAL PATCH TD SCH (10:14)
[2017-03-13] MEDS: VENLAFAXINE HCL 75 MG E.R. CAPSULES (FP) PO SCH (10:14)
[2017-03-13] MEDS: CLINDAMYCIN PHOSPHATE 1% TOPICAL GEL 30 GM TUBE TP SCH ×2 (10:15→21:30)
[2017-03-13] MEDS: MINERAL OIL/PETROLAT/WATER TOPICAL CREAM 113 GM JAR TP SCH ×2 (10:15→21:59)
[2017-03-13] MEDS: QUEtiapine FUMARATE 400 MG TABLET PO SCH (21:30)
[2017-03-13] MEDS: AMITRIPTYLINE HCL 25 MG TABLET (FP) PO SCH (21:30)
[2017-03-13] MEDS: THIAMINE HCL 100 MG TABLET (FP) PO SCH (21:30)
[2017-03-14] MEDS: GABAPENTIN 300 MG CAPSULE (FP) PO SCH ×3 (06:35→21:20)
[2017-03-14] MEDS: NICOTINE POLACRILEX 4 MG GUM BUC PRN ×5 (06:35→21:21)
[2017-03-14] MEDS: CYCLOBENZAPRINE HCL 10 MG TABLET (FP) PO SCH ×3 (06:35→21:20)
[2017-03-14] MEDS ORDERED: PT OWN MED DRAWER 7, Y5N ONE (08:41)
[2017-03-14] MEDS: CLINDAMYCIN PHOSPHATE 1% TOPICAL GEL 30 GM TUBE TP SCH ×2 (09:00→21:21)
[2017-03-14] MEDS: VENLAFAXINE HCL 75 MG E.R. CAPSULES (FP) PO SCH (09:00)
[2017-03-14] MEDS: PRENATAL VITAMINS W/ FOLIC ACID TABLET (FP) PO SCH (09:00)
[2017-03-14] MEDS: NICOTINE 21 MG/24 HOURS TOPICAL PATCH TD SCH (09:00)
[2017-03-14] MEDS: MINERAL OIL/PETROLAT/WATER TOPICAL CREAM 113 GM JAR TP SCH ×2 (09:00→21:21)
[2017-03-14] MEDS: BUPRENORPHINE HCL/NALOXONE 12 MG-3 MG SL FILM PACKET SL SCH (09:00)
[2017-03-14] MEDS: AMITRIPTYLINE HCL 25 MG TABLET (FP) PO SCH (21:20)
[2017-03-14] MEDS: THIAMINE HCL 100 MG TABLET (FP) PO SCH (21:20)
[2017-03-14] MEDS: QUEtiapine FUMARATE 400 MG TABLET PO SCH (21:20)
[2017-03-15] MEDS: GABAPENTIN 300 MG CAPSULE (FP) PO SCH ×3 (06:37→21:28)
[2017-03-15] MEDS: CYCLOBENZAPRINE HCL 10 MG TABLET (FP) PO SCH ×3 (06:38→21:28)
[2017-03-15] MEDS: IBUPROFEN 400 MG TABLET (FP) PO PRN (06:38)
[2017-03-15] MEDS: NICOTINE POLACRILEX 4 MG GUM BUC PRN ×5 (08:38→21:29)
[2017-03-15] MEDS ORDERED: PT OWN MED DRAWER 7, Y5N ONE (08:59)
[2017-03-15] MEDS: BUPRENORPHINE HCL/NALOXONE 12 MG-3 MG SL FILM PACKET SL SCH (09:47)
[2017-03-15] MEDS: NICOTINE 21 MG/24 HOURS TOPICAL PATCH TD SCH (09:47)
[2017-03-15] MEDS: VENLAFAXINE HCL 75 MG E.R. CAPSULES (FP) PO SCH (09:47)
[2017-03-15] MEDS: CLINDAMYCIN PHOSPHATE 1% TOPICAL GEL 30 GM TUBE TP SCH ×2 (09:47→21:27)
[2017-03-15] MEDS: PRENATAL VITAMINS W/ FOLIC ACID TABLET (FP) PO SCH (09:47)
[2017-03-15] MEDS: MINERAL OIL/PETROLAT/WATER TOPICAL CREAM 113 GM JAR TP SCH ×2 (09:49→21:27)
[2017-03-15] MEDS: QUEtiapine FUMARATE 400 MG TABLET PO SCH (21:28)
[2017-03-15] MEDS: AMITRIPTYLINE HCL 25 MG TABLET (FP) PO SCH (21:28)
[2017-03-15] MEDS: THIAMINE HCL 100 MG TABLET (FP) PO SCH (21:28)
[2017-03-16] MEDS: CYCLOBENZAPRINE HCL 10 MG TABLET (FP) PO SCH ×3 (06:33→21:16)
[2017-03-16] MEDS: GABAPENTIN 300 MG CAPSULE (FP) PO SCH ×3 (06:33→21:17)
[2017-03-16] MEDS: NICOTINE POLACRILEX 4 MG GUM BUC PRN ×6 (06:34→20:02)
[2017-03-16] MEDS: CLINDAMYCIN PHOSPHATE 1% TOPICAL GEL 30 GM TUBE TP SCH ×2 (09:44→21:18)
[2017-03-16] MEDS: PRENATAL VITAMINS W/ FOLIC ACID TABLET (FP) PO SCH (09:44)
[2017-03-16] MEDS: VENLAFAXINE HCL 75 MG E.R. CAPSULES (FP) PO SCH (09:44)
[2017-03-16] MEDS: NICOTINE 21 MG/24 HOURS TOPICAL PATCH TD SCH (09:44)
[2017-03-16] MEDS: MINERAL OIL/PETROLAT/WATER TOPICAL CREAM 113 GM JAR TP SCH ×2 (09:44→21:17)
[2017-03-16] MEDS: BUPRENORPHINE HCL/NALOXONE 12 MG-3 MG SL FILM PACKET SL SCH (09:44)
[2017-03-16] MEDS ORDERED: PT OWN MED DRAWER 7, Y5N ONE (20:20)
[2017-03-16] MEDS: THIAMINE HCL 100 MG TABLET (FP) PO SCH (21:16)
[2017-03-16] MEDS: AMITRIPTYLINE HCL 25 MG TABLET (FP) PO SCH (21:16)
[2017-03-16] MEDS: QUEtiapine FUMARATE 400 MG TABLET PO SCH (21:17)
[2017-03-17] MEDS: GABAPENTIN 300 MG CAPSULE (FP) PO SCH ×3 (06:22→21:23)
[2017-03-17] MEDS: CYCLOBENZAPRINE HCL 10 MG TABLET (FP) PO SCH ×3 (06:22→21:23)
[2017-03-17] MEDS: NICOTINE POLACRILEX 4 MG GUM BUC PRN ×6 (06:24→21:25)
[2017-03-17] MEDS: BUPRENORPHINE HCL/NALOXONE 12 MG-3 MG SL FILM PACKET SL SCH (09:44)
[2017-03-17] MEDS: VENLAFAXINE HCL 75 MG E.R. CAPSULES (FP) PO SCH (09:45)
[2017-03-17] MEDS: MINERAL OIL/PETROLAT/WATER TOPICAL CREAM 113 GM JAR TP SCH ×2 (09:45→21:23)
[2017-03-17] MEDS: CLINDAMYCIN PHOSPHATE 1% TOPICAL GEL 30 GM TUBE TP SCH ×2 (09:45→21:43)
[2017-03-17] MEDS: NICOTINE 21 MG/24 HOURS TOPICAL PATCH TD SCH (09:45)
[2017-03-17] MEDS: PRENATAL VITAMINS W/ FOLIC ACID TABLET (FP) PO SCH (09:45)
[2017-03-17] MEDS: THIAMINE HCL 100 MG TABLET (FP) PO SCH (21:23)
[2017-03-17] MEDS: QUEtiapine FUMARATE 400 MG TABLET PO SCH (21:23)
[2017-03-17] MEDS: AMITRIPTYLINE HCL 25 MG TABLET (FP) PO SCH (21:23)
[2017-03-18] MEDS: GABAPENTIN 300 MG CAPSULE (FP) PO SCH (06:17)
[2017-03-18] MEDS: NICOTINE POLACRILEX 4 MG GUM BUC PRN (06:18)
[2017-03-18] MEDS: CYCLOBENZAPRINE HCL 10 MG TABLET (FP) PO SCH (06:18)
[2017-03-18 07:04] VITALS: BP 109/74; PULSE 83; TEMP 97.6
--- NOTE | 2017-03-18 09:01 | PN ---
Psychiatric Progress Note Vital Signs: Vital Signs Period Temp Pulse Resp BP Sys/Courtney Pulse Ox Last 24 Hr 97.6 F 83 16-18 109/74 Date of Session: 03/18/17 Chief Complaint:: Discharge visit HPI: Patient addressed Alcohol,Cannabis,Anxiolytic and Opioid dependence comorbid with Substance induced mood disorder. ROS: unremarkable. Current Medications: Active Medications Generic Name Dose Route Start Last Admin Trade Name Freq PRN Reason Stop Dose Admin Acetaminophen 650 mg 02/24/17 15:38 Tylenol - PO Q4H PRN PAIN Al Hydroxide/Mg Hydroxide 30 ml 02/24/17 15:38 Mylanta Oral Suspension - PO Q6H PRN DYSPEPSIA Albuterol Sulfate 2 puff 03/09/17 14:21 Ventolin Hfa Inhaler - IH Q4H PRN SHORT OF BREATH/WHEEZING Amitriptyline HCl 25 mg 03/03/17 22:00 03/17/17 21:23 Elavil - PO 25 mg HS GURDEEP Administration Buprenorphine/Naloxone 1 each 03/10/17 11:45 03/17/17 09:44 Suboxone 12 Mg-3 Mg Sl Film SL 03/17/17 11:44 1 each DAILY GURDEEP Administration Clindamycin Phosphate 1 applic 02/26/17 22:00 03/17/17 21:43 Cleocin 1% Gel - TP 1 applic BID GURDEEP Administration Colloidal Oatmeal 1 applic 02/26/17 12:39 03/12/17 13:15 Aveeno Soap - TP 1 bar DAILY PRN Administration HYGEINE Cyclobenzaprine HCl 10 mg 03/03/17 15:45 03/18/17 06:18 Flexeril - PO 10 mg TID GURDEEP Administration Eucalyptus/Menthol/Phenol/Sorbitol 1 each 02/24/17 15:38 Cepastat Lozenge - MM Q4H PRN SORE THROAT Gabapentin 600 mg 02/25/17 14:00 03/18/17 06:17 Neurontin - PO 600 mg TID GURDEEP Administration Guaifenesin 10 ml 02/24/17 15:38 Robitussin Dm - PO Q6H PRN COUGH Hydroxyzine Pamoate 50 mg 02/24/17 15:38 Vistaril - PO Q4H PRN AGITATION Ibuprofen 400 mg 02/24/17 15:38 03/15/17 06:38 Motrin - PO 400 mg Q6H PRN Administration SEVERE PAIN Loperamide HCl 4 mg 02/24/17 15:38 Imodium - PO Q6H PRN DIARRHEA Magnesium Citrate 300 ml 02/24/17 15:38 Citroma - PO Q48H PRN CONSTIPATION Magnesium Hydroxide 30 ml 02/24/17 15:38 Milk Of Magnesia - PO DAILY PRN CONSTIPATION Meclizine HCl 25 mg 03/01/17 12:37 03/04/17 11:04 Antivert - PO 25 mg Q6H PRN Administration dizziness Multi-Ingredient Lotion 1 applic 02/26/17 12:45 03/17/17 21:23 Eucerin (Small Jar) - TP Not Given BID GURDEEP Nicotine 21 mg 02/25/17 10:00 03/17/17 09:45 Nicoderm Patch - TD 21 mg DAILY GURDEEP Administration Nicotine Polacrilex 4 mg 02/25/17 10:57 03/18/17 06:18 Nicorette Gum - BUC 4 mg Q2H PRN Administration NICOTINE REPLACEMENT RX Ondansetron HCl 8 mg 03/01/17 12:37 Zofran Odt - SL Q4H PRN NAUSEA AND/OR VOMITING Multivit/Folic Acid/Iron 1 tab 02/25/17 10:00 03/17/17 09:45 Vitamins (Sjr) - PO 1 tab DAILY GURDEEP Administration Pseudoephedrine/Triprolidine 1 combo 02/24/17 15:38 Actifed - PO TID PRN NASAL CONGESTION Quetiapine Fumarate 400 mg 02/27/17 22:00 03/17/17 21:23 Seroquel - PO 400 mg HS GURDEEP Administration Thiamine HCl 100 mg 02/24/17 22:00 03/17/17 21:23 Vitamin B1 - PO Not Given HS GURDEEP Venlafaxine HCl 75 mg 03/03/17 10:00 03/17/17 09:45 Effexor Xr - PO 75 mg DAILY GURDEEP Administration Current Side Effect: No Lab tests ordered: No Lab tests reviewed: Yes Provider note:: patient completed this program today.She has met her treatment goals and will continue to address her issues on outpatient basis at [facility] in [facility]. She reports finding theat current medications:Seroquel 400 mg po hs,Neurontin 600 mg po tid,Elavil 25 mg po hs,Effexor XR 75 mg po daily help to cope with mood instability,depression,anxiety,insomnia.Scripts for 30 days provided. Supportive therapy provided focusling on relapse prevention. Patient is stable for discharge today. Total face to face time:: 30 Mental Status Exam - Mental Status Exam Alert and Oriented to: Time, Place, Person Cognitive Function: Grossly Intact Patient Appearance: Well Groomed Mood: Hopeful, Euthymic Affect: Appropriate, Mood Congruent Patient Behavior: Cooperative Speech Pattern: Clear Voice Loudness: Normal Thought Process: Goal Oriented Thought Disorder: Not Present Hallucinations: Denies Suicidal Ideation: Denies Homicidal Ideation: Denies Insight/Judgement: Fair Sleep: Fair Appetite: Good Muscle strength/Tone: Normal Gait/Station: Normal Psychiatric Treatment Plan - Problem List (1) Nicotine dependence Qualifiers: Nicotine product type: cigarettes Substance use status: uncomplicated Qualified Code(s): F17.210 - Nicotine dependence, cigarettes, uncomplicated (5) Opioid dependence Qualifiers: Substance use status: uncomplicated Qualified Code(s): F11.20 - Opioid dependence, uncomplicated
[2017-03-18] MEDS: PRENATAL VITAMINS W/ FOLIC ACID TABLET (FP) PO SCH (09:11)
[2017-03-18] MEDS: VENLAFAXINE HCL 75 MG E.R. CAPSULES (FP) PO SCH (09:11)
[2017-03-18] MEDS: CLINDAMYCIN PHOSPHATE 1% TOPICAL GEL 30 GM TUBE TP SCH (09:12)
[2017-03-18] MEDS: NICOTINE 21 MG/24 HOURS TOPICAL PATCH TD SCH (09:12)
[2017-03-18] MEDS: MINERAL OIL/PETROLAT/WATER TOPICAL CREAM 113 GM JAR TP SCH (09:12)
[2017-03-18] MEDS ORDERED: BUPRENORPHINE HCL/NALOXONE 12 MG-3 MG SL FILM PACKET SL SCH (10:00)
== END 2017-03-18 09:30 | disposition home or self-care (01) | DRG 772 ==
LOC: YASAS 13:49 → Y3E 16:07
PROVIDERS: ADMIT Psychiatry & Neurology Psychiatry; ATTEND Psychiatry & Neurology Psychiatry
PROC: HZ42ZZZ Group Counseling for Substance Abuse Treatment, Cognitive-Behavioral (ICD-10-PCS; principal; 2017-02-24)
DX: F11.20 Opioid dependence, uncomplicated (principal); F12.20 Cannabis dependence, uncomplicated; F10.21 Alcohol dependence, in remission; F13.21 Sedative, hypnotic or anxiolytic dependence, in remission; F17.210 Nicotine dependence, cigarettes, uncomplicated; F19.24 Other psychoactive substance dependence with psychoactive substance-induced mood disorder; F33.9 Major depressive disorder, recurrent, unspecified
CPT/HCPCS: 36415; 80053; 81003; 81015; 85027; 86593; 93005; 93010

== ENCOUNTER 2017-05-10 12:05 | Inpatient (IN) | payer OTHER ==
[2017-05-10 12:19] VITALS: BMI 30.5
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
[2017-05-10] MEDS ORDERED: P-EPHED 60MG/TRIPROLIDI 2.5MG TABLET PO PRN (15:11)
[2017-05-10] MEDS ORDERED: MAG HYDROX/AL HYDROX/SIMETH 30 ML UNIT-DOSE CUP PO PRN (15:11)
[2017-05-10] MEDS ORDERED: guaiFENesin/D-METHORPHAN HB 10 ML UNIT-DOSE CUPS PO PRN (15:11)
[2017-05-10] MEDS ORDERED: IBUPROFEN 400 MG TABLET (FP) PO PRN (15:11)
[2017-05-10] MEDS ORDERED: ACETAMINOPHEN 325 MG TABLET (FP) PO PRN (15:11)
[2017-05-10] MEDS ORDERED: MAGNESIUM HYDROX 2400MG/30ML ORAL SUSPENSION 30 ML CUP PO PRN (15:11)
[2017-05-10] MEDS ORDERED: diazePAM 5 MG TABLET PO ONE (15:11)
[2017-05-10] MEDS ORDERED: LOPERAMIDE HCL 2 MG CAPSULE PO PRN (15:11)
[2017-05-10] MEDS ORDERED: MAGNESIUM CITRATE 300 ML BOTTLE PO PRN (15:11)
[2017-05-10] MEDS ORDERED: MENTHOL/PHENOL 1 EACH UD MM PRN (15:11)
[2017-05-10] MEDS ORDERED: METHADONE HCL 10 MG TABLET (FOR DETOX USE ONLY) PO ONE ×2 (15:11→23:00)
[2017-05-10] MEDS ORDERED: hydrOXYzine PAMOATE 25 MG CAPSULE (FP) PO PRN (15:11)
[2017-05-10] MEDS: NICOTINE 21 MG/24 HOURS TOPICAL PATCH TD SCH (17:04)
[2017-05-10 19:27] LABS: URINE APPEARANCE CLOUDY; URINE BILIRUBIN NEGATIVE (NEGATIVE); URINE BLOOD NEGATIVE (NEGATIVE); URINE COLOR DKYELLOW; URINE GLUCOSE (UA) NEGATIVE (NEGATIVE); URINE KETONE NEGATIVE (NEGATIVE); URINE LEUK ESTERASE TRACE (NEGATIVE); URINE NITRITE NEGATIVE (NEGATIVE); URINE PROTEIN NEGATIVE (NEGATIVE)
[2017-05-10 19:32] LABS: EPI CELLS MANY /HPF (FEW); URINE BACTERIA FEW /hpf (NONE SEEN); URINE MUCUS FEW
[2017-05-10] MEDS: diazePAM 5 MG TABLET PO SCH (23:09)
[2017-05-10] MEDS: THIAMINE HCL 100 MG TABLET (FP) PO SCH (23:09)
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
[2017-05-11] MEDS ORDERED: BACITRACIN 0.9 GM PACKET ONE (00:35)
[2017-05-11] MEDS: diazePAM 5 MG TABLET PO SCH ×3 (06:39→22:48)
[2017-05-11] MEDS ORDERED: METHADONE HCL 10 MG TABLET (FOR DETOX USE ONLY) PO SCH (10:00)
[2017-05-11 10:38] LABS: HEMATOCRIT 39.9 % (32.4-45.2); HEMOGLOBIN 13.4 GM/dL (10.7-15.3); MCH 34.5 pg (25.7-33.7); MCHC 33.7 g/dl (32.0-36.0); MEAN CELL VOLUME 102.4 fl (80-96); MEAN PLT VOLUME 8.2 fl (7.5-11.1); PLATELET COUNT 318 K/MM3 (134-434); RBC 3.89 M/mm3 (3.60-5.2); RDW 13.1 % (11.6-15.6); WHITE BLOOD COUNT 8.5 K/mm3 (4.0-10.0)
[2017-05-11 10:53] LABS: CHLORIDE 106 mmol/L (98-107); POTASSIUM 4.2 mmol/L (3.5-5.1); SODIUM 140 mmol/L (136-145)
[2017-05-11] MEDS: PRENATAL VITAMINS W/ FOLIC ACID TABLET (FP) PO SCH (11:08)
[2017-05-11] MEDS: BACITRACIN 0.9 GM PACKET TP SCH (11:08)
[2017-05-11] MEDS: NICOTINE 21 MG/24 HOURS TOPICAL PATCH TD SCH (11:11)
[2017-05-11] MEDS: NICOTINE POLACRILEX 2 MG GUM BC PRN ×4 (11:11→22:48)
[2017-05-11 11:16] LABS: ALBUMIN 3.2 g/dl (3.4-5.0); ALK PHOS 117 U/L (45-117); ANION GAP 5 (8-16); BILIRUBIN,TOTAL 0.5 mg/dL (0.2-1.0); BLOOD UREA NITROGEN 7 mg/dL (7-18); CALCIUM 8.3 mg/dL (8.5-10.1); CO2 29 mmol/L (21-32); CREATININE 0.5 mg/dL (0.55-1.02); GLUCOSE,RANDOM 84 mg/dL (74-106); SGOT/AST 24 U/L (15-37); SGPT/ALT 21 U/L (12-78); TOT PROT 6.7 g/dl (6.4-8.2)
--- NOTE | 2017-05-11 13:24 | PN ---
[facility] COWS - Scale Resting Pulse: 0= [place] 80 or Below Sweatin=Flushed/Facial Moisture Restless Observation: 3= Extraneous Movement Pupil Size: 0= Normal to Room Light Bone or Joint Aches: 1= Mild Discomfort Runny Nose/ Eye Tearin= Nasal Congestion GI Upset > 30mins: 0= None Tremor Observation of Outstretched Hands: 2= Slight Tremor Visible Yawning Observation: 1= 1-2x During Session Anxiety or Irritability: 2=Irritable/Anxious Goose Flesh Skin: 0=Smooth Skin COWS Score: 12 S Progress Note (SOAP) Subjective: sweats diarrhea Objective: 05/11/17 13:22 Linear abrasion to L eye, no bleeding Laboratory Last Values WBC 8.5 K/mm3 (4.0-10.0) 05/11/17 08:10 RBC 3.89 M/mm3 (3.60-5.2) 05/11/17 08:10 Hgb 13.4 GM/dL (10.7-15.3) 05/11/17 08:10 Hct 39.9 % (32.4-45.2) 05/11/17 08:10 MCV 102.4 fl (80-96) H 05/11/17 08:10 MCH 34.5 pg (25.7-33.7) H 05/11/17 08:10 MCHC 33.7 g/dl (32.0-36.0) 05/11/17 08:10 RDW 13.1 % (11.6-15.6) 05/11/17 08:10 Plt Count 318 K/MM3 (134-434) 05/11/17 08:10 MPV 8.2 fl (7.5-11.1) 05/11/17 08:10 Sodium 140 mmol/L (136-145) 05/11/17 08:10 Potassium 4.2 mmol/L (3.5-5.1) 05/11/17 08:10 Chloride 106 mmol/L (98-107) 05/11/17 08:10 Carbon Dioxide 29 mmol/L (21-32) 05/11/17 08:10 Anion Gap 5 (8-16) L 05/11/17 08:10 BUN 7 mg/dL (7-18) 05/11/17 08:10 Creatinine 0.5 mg/dL (0.55-1.02) L 05/11/17 08:10 Creat Clearance w eGFR > 60 (>60) 05/11/17 08:10 Random Glucose 84 mg/dL (74-106) 05/11/17 08:10 Calcium 8.3 mg/dL (8.5-10.1) L 05/11/17 08:10 Total Bilirubin 0.5 mg/dL (0.2-1.0) D 05/11/17 08:10 AST 24 U/L (15-37) 05/11/17 08:10 ALT 21 U/L (12-78) 05/11/17 08:10 Alkaline Phosphatase 117 U/L (45-117) 05/11/17 08:10 Total Protein 6.7 g/dl (6.4-8.2) 05/11/17 08:10 Albumin 3.2 g/dl (3.4-5.0) L 05/11/17 08:10 Urine Color Dkyellow 05/10/17 17:00 Urine Appearance Cloudy 05/10/17 17:00 Urine pH 6.0 (5.0-8.0) D 05/10/17 17:00 Ur Specific [place] 1.016 (1.001-1.035) 05/10/17 17:00 Urine Protein Negative (NEGATIVE) 05/10/17 17:00 Urine Glucose (UA) Negative (NEGATIVE) 05/10/17 17:00 Urine Ketones Negative (NEGATIVE) 05/10/17 17:00 Urine Blood Negative (NEGATIVE) 05/10/17 17:00 Urine Nitrite Negative (NEGATIVE) 05/10/17 17:00 Urine Bilirubin Negative (NEGATIVE) 05/10/17 17:00 Urine Urobilinogen 2.0 mg/dL (0.2-1.0) H 05/10/17 17:00 Ur Leukocyte Esterase Trace (NEGATIVE) 05/10/17 17:00 Urine WBC (Auto) 15 /hpf (3-5) 05/10/17 17:00 Urine RBC (Auto) 13 /hpf (0-3) 05/10/17 17:00 Ur Epithelial Cells Many /HPF (FEW) 05/10/17 17:00 Urine Bacteria Few /hpf (NONE SEEN) 05/10/17 17:00 Urine Mucus Few 05/10/17 17:00 Vital Signs Temperature 98.2 F 05/11/17 12:03 Pulse Rate 76 05/11/17 12:03 Respiratory Rate 19 05/11/17 12:03 Blood Pressure 94/59 05/11/17 12:03 O2 Sat by Pulse Oximetry (%) Assessment: 05/11/17 13:24 withdrawal sx Plan: continue detox Increase hydration continue bacitracin to affected area
--- NOTE | 2017-05-11 13:47 | PN ---
[facility] Progress Note Note: Circular Knitter Helper approached patient three times for psychiatric consultation but patient refused. Stated, " I don't feel well. Can you please see me tomorrow." Pt. requesting seroquel 400mg qhs. Chart review. Pt. observed to be laying in bed throughout the day. Will ordered seroquel 200mg qhs (reduce dosaged to prevent oversedation) with the plan to increase seroquel to 400mg. Will continue to monitor.
[2017-05-11] MEDS: diazePAM 5 MG TABLET PO PRN (17:53)
[2017-05-11] MEDS ORDERED: QUEtiapine FUMARATE 200 MG TABLET PO SCH (22:00)
[2017-05-11] MEDS: THIAMINE HCL 100 MG TABLET (FP) PO SCH (22:48)
--- NOTE | 2017-05-11 23:30 | EKG ---
Test Reason : Blood Pressure : / mmHG Vent. Rate : 072 BPM Atrial Rate : 072 BPM P-R Int : 166 ms QRS Dur : 102 ms QT Int : 412 ms P-R-T Axes : 046 000 026 degrees QTc Int : 451 ms NORMAL SINUS RHYTHM INCOMPLETE RIGHT BUNDLE BRANCH BLOCK BORDERLINE ECG WHEN COMPARED WITH ECG OF 24-FEB-2017 22:02, NO SIGNIFICANT CHANGE WAS FOUND Confirmed by STACEY DENNISON MD ([id number]) on 05/11/2017 11:30:00 PM Referred By: Miguel Angel Tse Confirmed By:STACEY DENNISON MD
[2017-05-12] MEDS ORDERED: METHADONE HCL 5 MG TABLET (FOR DETOX USE ONLY) PO SCH (10:00)
[2017-05-12] MEDS: BACITRACIN 0.9 GM PACKET TP SCH (10:31)
[2017-05-12] MEDS: PRENATAL VITAMINS W/ FOLIC ACID TABLET (FP) PO SCH (10:31)
[2017-05-12] MEDS: NICOTINE 21 MG/24 HOURS TOPICAL PATCH TD SCH (10:32)
[2017-05-12] MEDS: diazePAM 5 MG TABLET PO SCH ×2 (10:32→22:23)
[2017-05-12] MEDS: VENLAFAXINE HCL 150 MG E.R. CAPSULE PO SCH (10:34)
[2017-05-12] MEDS: NICOTINE POLACRILEX 2 MG GUM BC PRN ×3 (10:34→22:25)
--- NOTE | 2017-05-12 10:48 | PN ---
S COWS - Scale Resting Pulse: 0= [place] 80 or Below Sweatin= Chills/Flushing Restless Observation: 1= Difficult to Sit Still Pupil Size: 0= Normal to Room Light Bone or Joint Aches: 2= Severe Diffuse Aches Runny Nose/ Eye Tearin= Nasal Congestion GI Upset > 30mins: 1= Stomach Cramp Tremor Observation of Outstretched Hands: 2= Slight Tremor Visible Yawning Observation: 1= 1-2x During Session Anxiety or Irritability: 2=Irritable/Anxious Goose Flesh Skin: 0=Smooth Skin COWS Score: 11 S Progress Note (SOAP) Subjective: anxiety joint aches tremor restlessness agitation sweat Objective: 05/12/17 10:45 Laboratory Last Values WBC 8.5 K/mm3 (4.0-10.0) 05/11/17 08:10 RBC 3.89 M/mm3 (3.60-5.2) 05/11/17 08:10 Hgb 13.4 GM/dL (10.7-15.3) 05/11/17 08:10 Hct 39.9 % (32.4-45.2) 05/11/17 08:10 MCV 102.4 fl (80-96) H 05/11/17 08:10 MCH 34.5 pg (25.7-33.7) H 05/11/17 08:10 MCHC 33.7 g/dl (32.0-36.0) 05/11/17 08:10 RDW 13.1 % (11.6-15.6) 05/11/17 08:10 Plt Count 318 K/MM3 (134-434) 05/11/17 08:10 MPV 8.2 fl (7.5-11.1) 05/11/17 08:10 Sodium 140 mmol/L (136-145) 05/11/17 08:10 Potassium 4.2 mmol/L (3.5-5.1) 05/11/17 08:10 Chloride 106 mmol/L (98-107) 05/11/17 08:10 Carbon Dioxide 29 mmol/L (21-32) 05/11/17 08:10 Anion Gap 5 (8-16) L 05/11/17 08:10 BUN 7 mg/dL (7-18) 05/11/17 08:10 Creatinine 0.5 mg/dL (0.55-1.02) L 05/11/17 08:10 Creat Clearance w eGFR > 60 (>60) 05/11/17 08:10 Random Glucose 84 mg/dL (74-106) 05/11/17 08:10 Calcium 8.3 mg/dL (8.5-10.1) L 05/11/17 08:10 Total Bilirubin 0.5 mg/dL (0.2-1.0) D 05/11/17 08:10 AST 24 U/L (15-37) 05/11/17 08:10 ALT 21 U/L (12-78) 05/11/17 08:10 Alkaline Phosphatase 117 U/L (45-117) 05/11/17 08:10 Total Protein 6.7 g/dl (6.4-8.2) 05/11/17 08:10 Albumin 3.2 g/dl (3.4-5.0) L 05/11/17 08:10 Urine Color Dkyellow 05/10/17 17:00 Urine Appearance Cloudy 05/10/17 17:00 Urine pH 6.0 (5.0-8.0) D 05/10/17 17:00 Ur Specific [place] 1.016 (1.001-1.035) 05/10/17 17:00 Urine Protein Negative (NEGATIVE) 05/10/17 17:00 Urine Glucose (UA) Negative (NEGATIVE) 05/10/17 17:00 Urine Ketones Negative (NEGATIVE) 05/10/17 17:00 Urine Blood Negative (NEGATIVE) 05/10/17 17:00 Urine Nitrite Negative (NEGATIVE) 05/10/17 17:00 Urine Bilirubin Negative (NEGATIVE) 05/10/17 17:00 Urine Urobilinogen 2.0 mg/dL (0.2-1.0) H 05/10/17 17:00 Ur Leukocyte Esterase Trace (NEGATIVE) 05/10/17 17:00 Urine WBC (Auto) 15 /hpf (3-5) 05/10/17 17:00 Urine RBC (Auto) 13 /hpf (0-3) 05/10/17 17:00 Ur Epithelial Cells Many /HPF (FEW) 05/10/17 17:00 Urine Bacteria Few /hpf (NONE SEEN) 05/10/17 17:00 Urine Mucus Few 05/10/17 17:00 lab noted asymptomatic Assessment: 05/12/17 10:47 withdrawal sx Plan: continue detox increase oral fluid
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
[2017-05-12] MEDS: diazePAM 5 MG TABLET PO PRN ×2 (13:37→17:40)
[2017-05-12] MEDS: GABAPENTIN 300 MG CAPSULE (FP) PO SCH ×2 (14:51→22:22)
[2017-05-12] MEDS ORDERED: COLLOIDAL OATMEAL 1 BAR EACH TP PRN (17:46)
[2017-05-12] MEDS ORDERED: QUEtiapine FUMARATE 200 MG TABLET PO SCH (19:00)
[2017-05-12] MEDS ORDERED: QUEtiapine FUMARATE 300 MG TABLET PO SCH (22:00)
[2017-05-12] MEDS: THIAMINE HCL 100 MG TABLET (FP) PO SCH (22:22)
[2017-05-13] MEDS: GABAPENTIN 300 MG CAPSULE (FP) PO SCH (06:04)
[2017-05-13] MEDS: diazePAM 5 MG TABLET PO PRN ×2 (06:06→12:35)
[2017-05-13] MEDS: NICOTINE POLACRILEX 2 MG GUM BC PRN ×3 (06:07→12:36)
[2017-05-13] MEDS: VENLAFAXINE HCL 150 MG E.R. CAPSULE PO SCH (07:17)
--- NOTE | 2017-05-13 09:22 | PN ---
[facility] Progress Note (SOAP) Subjective: patient reports being on suboxone program and does not need methadone detox as prescribed is very comfortable and would like to go to rehab today if bed available. Dionne Michelle Date: 1985 Address: [address] [place] [id number] Sex: Female Rx Written Rx Dispensed Drug Quantity Days Supply Prescriber Name 03/17/2017 03/18/2017 suboxone 12 mg-3 mg sl film 7 7 Dedrick Miguel Angel M Patient Name: Dionne Michelle Date: 1985 Address: [address] [place] [id number] Sex: Female Rx Written Rx Dispensed Drug Quantity Days Supply Prescriber Name 05/04/2017 05/06/2017 suboxone 12 mg-3 mg sl film 36 18 Wanda Blankenship 05/05/2017 05/05/2017 suboxone 8 mg-2 mg sl film 2 1 Wanda Blankenship 04/22/2017 04/22/2017 suboxone 12 mg-3 mg sl film 30 15 Wanda Blankenship 04/07/2017 04/09/2017 suboxone 8 mg-2 mg sl film 30 15 Héctor Beal MD 04/07/2017 04/07/2017 suboxone 12 mg-3 mg sl film 3 3 Héctor Beal MD 03/27/2017 03/27/2017 suboxone 8 mg-2 mg sl film 30 15 Wanda Blankenship 03/24/2017 03/24/2017 suboxone 12 mg-3 mg sl film 15 15 Moreno Romero MD 01/21/2017 02/02/2017 tramadol hcl 50 mg tablet 30 30 Tal Smith MD 12/31/2016 01/12/2017 tramadol hcl 50 mg tablet 23 23 Tal Smith MD 12/31/2016 01/06/2017 tramadol hcl 50 mg tablet 7 7 Tal Smith MD 09/04/2016 09/04/2016 alprazolam 2 mg tablet 60 30 Christiano Meehan MD 08/22/2016 08/22/2016 suboxone 8 mg-2 mg sl film 21 7 Héctor Beal MD 07/31/2016 07/31/2016 alprazolam 2 mg tablet 90 30 ShefaliChristiano felder MD 07/18/2016 07/18/2016 suboxone 8 mg-2 mg sl film 45 15 Héctor Beal MD 07/11/2016 07/11/2016 alprazolam 2 mg tablet 90 30 ShefaliChristiano barajas MD 07/11/2016 07/11/2016 oxycodone-acetaminophen 5-325 mg tab 100 16 ShefaliChristiano felder MD 07/08/2016 07/08/2016 alprazolam 2 mg tablet 120 30 ShefaliChristiano barajas MD 06/02/2016 06/27/2016 suboxone 12 mg-3 mg sl film 60 30 OlHéctor lea MD 06/18/2016 06/18/2016 zolpidem tartrate 10 mg tablet 30 30 ShefaliChristiano MD 06/18/2016 06/18/2016 alprazolam 2 mg tablet 30 30 ShefaliChristiano MD Patient Name: Dionne Michelle Date: 1985 Address: [address] [place] [address] Sex: Female Rx Written Rx Dispensed Drug Quantity Days Supply Prescriber Name 09/08/2016 09/08/2016 chlordiazepoxide 25 mg capsule 26 5 Roberto Gutierrez 07/13/2016 07/14/2016 chlordiazepoxide 25 mg capsule 26 5 Ban Gary J, Dns, BLEACHER LARD Patient Name: Dionne Michelle Date: 1985 Address: [address] [place] [id number] Sex: Female Rx Written Rx Dispensed Drug Quantity Days Supply Prescriber Name 06/02/2016 06/02/2016 suboxone 12 mg-3 mg sl film 60 30 Héctor Beal MD Objective: 05/13/17 09:18 Vital Signs - 24 hr 05/12/17 05/12/17 05/12/17 10:38 13:24 18:07 Temperature 98.3 F 98.4 F 98.2 F Pulse Rate 77 86 70 Respiratory 18 18 18 Rate Blood Pressure 102/73 111/61 103/53 05/12/17 05/13/17 05/13/17 22:53 00:30 03:30 Temperature 98.4 F Pulse Rate 73 Respiratory 18 18 18 Rate Blood Pressure 104/58 05/13/17 06:00 Temperature 97.7 F Pulse Rate 72 Respiratory 18 Rate Blood Pressure 105/56 Laboratory Tests 05/10/17 05/11/17 05/11/17 17:00 08:10 08:10 WBC 8.5 RBC 3.89 Hgb 13.4 Hct 39.9 MCV 102.4 H MCH 34.5 H MCHC 33.7 RDW 13.1 Plt Count 318 MPV 8.2 Sodium 140 Potassium 4.2 Chloride 106 Carbon Dioxide 29 Anion Gap 5 L BUN 7 Creatinine 0.5 L Creat Clearance w eGFR > 60 Random Glucose 84 Calcium 8.3 L Total Bilirubin 0.5 D AST 24 ALT 21 Alkaline Phosphatase 117 Total Protein 6.7 Albumin 3.2 L Urine Color Dkyellow Urine Appearance Cloudy Urine pH 6.0 D Ur Specific [place] 1.016 Urine Protein Negative Urine Glucose (UA) Negative Urine Ketones Negative Urine Blood Negative Urine Nitrite Negative Urine Bilirubin Negative Urine Urobilinogen 2.0 H Ur Leukocyte Esterase Trace Urine WBC (Auto) 15 Urine RBC (Auto) 13 Ur Epithelial Cells Many Urine Bacteria Few Urine Mucus Few Assessment: 05/13/17 09:19 OUD - on mat w suboxone as per visually impaired teacher 24mg daily, will d/c methadone detox and restart when patient is in rehab, cont valium detox for alcohl dependence but clinically stable and if bed available can transfer to rehab bed today, complete detox as ordered. fluids, encoruage ambualtion
--- NOTE | 2017-05-13 10:11 | DS ---
[facility] Detox Discharge Summary Admission Date: 05/10/17 Discharge Date: 05/13/17 - History Present History: Alcohol Dependence, Opioid Dependence Additional Comments: on suboxon treatment, [facility] detox d/c will restart suboxone in rehab tomorrow. wants to go to rehab today, [facility] table can discharge Pertinent Past History: anxiety, depresssion, insomnia,nicotien depndence, on mat with suboxone for opioid [id number] - Physical Exam Results Vital Signs: Vital Signs Temperature 97.7 F 05/13/17 06:00 Pulse Rate 72 05/13/17 06:00 Respiratory Rate 18 05/13/17 06:00 Blood Pressure 105/56 05/13/17 06:00 O2 Sat by Pulse Oximetry (%) Laboratory Tests 05/10/17 05/11/17 05/11/17 17:00 08:10 08:10 WBC 8.5 RBC 3.89 Hgb 13.4 Hct 39.9 MCV 102.4 H MCH 34.5 H MCHC 33.7 RDW 13.1 Plt Count 318 MPV 8.2 Sodium 140 Potassium 4.2 Chloride 106 Carbon Dioxide 29 Anion Gap 5 L BUN 7 Creatinine 0.5 L Creat Clearance w eGFR > 60 Random Glucose 84 Calcium 8.3 L Total Bilirubin 0.5 D AST 24 ALT 21 Alkaline Phosphatase 117 Total Protein 6.7 Albumin 3.2 L Urine Color Dkyellow Urine Appearance Cloudy Urine pH 6.0 D Ur Specific [place] 1.016 Urine Protein Negative Urine Glucose (UA) Negative Urine Ketones Negative Urine Blood Negative Urine Nitrite Negative Urine Bilirubin Negative Urine Urobilinogen 2.0 H Ur Leukocyte Esterase Trace Urine WBC (Auto) 15 Urine RBC (Auto) 13 Ur Epithelial Cells Many Urine Bacteria Few Urine Mucus Few Pertinent Admission Physical Exam Findings: withdrawal sx - Treatment Hospital Course: Detox Protocol Followed, Detoxed Safely, Responded well, Discharged Condition Good, Rehab Referral Accepted Patient has Accepted a Rehab Referral to: Yes - Medication Discharge Medications: Ambulatory Orders Amitriptyline HCl [Elavil -] 25 mg PO HS #30 tablet 03/18/17 Gabapentin [Neurontin] 600 mg PO TID #30 tablet 03/18/17 Quetiapine Fumarate [Seroquel -] 400 mg PO HS #30 tab 03/19/17 Buprenorphine HCl/Naloxone HCl [Suboxone 12 mg-3 mg Sl Film] 1 each SL BID MDD 1 05/10/17 Venlafaxine HCl ER [Effexor Xr -] 150 mg PO DAILY 05/10/17 - Diagnosis (1) Nicotine dependence Current Visit: Yes Status: Chronic Qualifiers: Nicotine product type: cigarettes Substance use status: uncomplicated Qualified Code(s): F17.210 - Nicotine dependence, cigarettes, uncomplicated (2) Marijuana dependence Current Visit: No Status: Chronic (3) MDD (major depressive disorder) Current Visit: Yes Status: Chronic (4) Substance induced mood disorder Current Visit: Yes Status: Acute (5) Obesity (BMI 30.0-34.9) Current Visit: Yes Status: Chronic (6) Lumbago Current Visit: Yes Status: Chronic (7) Bipolar disorder Current Visit: Yes Status: Suspected (8) Opioid dependence on agonist therapy Current Visit: Yes Status: Acute (9) Alcohol dependence with uncomplicated withdrawal Current Visit: Yes Status: Acute - AMA Did Patient Leave Against Medical Advice: No
[2017-05-13] MEDS: diazePAM 5 MG TABLET PO SCH (10:16)
[2017-05-13] MEDS: PRENATAL VITAMINS W/ FOLIC ACID TABLET (FP) PO SCH (10:16)
[2017-05-13] MEDS: NICOTINE 21 MG/24 HOURS TOPICAL PATCH TD SCH (10:16)
[2017-05-13] MEDS: BACITRACIN 0.9 GM PACKET TP SCH (10:16)
[2017-05-13 10:43] VITALS: BP 106/72; PULSE 67; TEMP 98.1
[2017-05-14] MEDS ORDERED: METHADONE HCL 10 MG TABLET (FOR DETOX USE ONLY) PO SCH (10:00)
[2017-05-14] MEDS ORDERED: diazePAM 5 MG TABLET PO SCH (10:00)
[2017-05-15] MEDS ORDERED: METHADONE HCL 5 MG TABLET (FOR DETOX USE ONLY) PO SCH (06:00)
== END 2017-05-13 13:05 | disposition other institution (70) | DRG 773 ==
LOC: YASAS 12:05 → Y6N 15:16
PROVIDERS: ADMIT Internal Medicine; ATTEND Internal Medicine
PROC: HZ2ZZZZ Detoxification Services for Substance Abuse Treatment (ICD-10-PCS; principal; 2017-05-10)
DX: F11.20 Opioid dependence, uncomplicated (principal); F13.230 Sedative, hypnotic or anxiolytic dependence with withdrawal, uncomplicated; F10.230 Alcohol dependence with withdrawal, uncomplicated; F12.20 Cannabis dependence, uncomplicated; F17.210 Nicotine dependence, cigarettes, uncomplicated; F31.9 Bipolar disorder, unspecified; F19.24 Other psychoactive substance dependence with psychoactive substance-induced mood disorder; F33.9 Major depressive disorder, recurrent, unspecified; M54.5 Low back pain; G89.29 Other chronic pain; E66.9 Obesity, unspecified; Z68.30 Body mass index [BMI] 30.0-30.9, adult; Z59.0 Homelessness
CPT/HCPCS: 36415; 80053; 81003; 81015; 85027; 93005; 93010

== ENCOUNTER 2017-05-13 13:40 | Inpatient (IN) | payer OTHER ==
--- NOTE | 2017-05-13 15:13 | HP ---
[facility] Rehab Assess/Revision - Admission History Admitted to Rehab from: [facility] [place] Date of Admission to Rehab: 05/13/2017 - Vital signs Vital Signs: Vital Signs Period Temp Pulse Resp BP Sys/Courtney Pulse Ox Last 24 Hr 97.9 F 80 18 104/63 labs reveiwed - Findings Detox History & Physical reviewed: Yes Concur with findings: Yes (patient startedon methadone detox which was d/c becsue of mat WITH SUBOXONE) Inpatient Rehab Admission - Initial Determination Are CD services needed?: Yes Free of communicable disease: Yes Not in need of hospitalization: Yes - Rehab Admission Criteria Previous failed treatment: Yes Patient is meeting Inpatient Rehab admission criteria:: Yes
[2017-05-13] MEDS ORDERED: P-EPHED 60MG/TRIPROLIDI 2.5MG TABLET PO PRN (15:15)
[2017-05-13] MEDS ORDERED: MAGNESIUM HYDROX 2400MG/30ML ORAL SUSPENSION 30 ML CUP PO PRN (15:15)
[2017-05-13] MEDS ORDERED: MAGNESIUM CITRATE 300 ML BOTTLE PO PRN (15:15)
[2017-05-13] MEDS ORDERED: MAG HYDROX/AL HYDROX/SIMETH 30 ML UNIT-DOSE CUP PO PRN (15:15)
[2017-05-13] MEDS ORDERED: guaiFENesin/D-METHORPHAN HB 10 ML UNIT-DOSE CUPS PO PRN (15:15)
[2017-05-13] MEDS ORDERED: MENTHOL/PHENOL 1 EACH UD MM PRN (15:15)
[2017-05-13] MEDS ORDERED: LOPERAMIDE HCL 2 MG CAPSULE PO PRN (15:15)
[2017-05-13] MEDS ORDERED: hydrOXYzine PAMOATE 50 MG CAPSULE (FP) PO PRN (15:15)
[2017-05-13] MEDS ORDERED: IBUPROFEN 400 MG TABLET (FP) PO PRN (15:15)
[2017-05-13] MEDS ORDERED: BUPRENORPHINE/NALOXONE 2 MG/0.5 MG FILM PACKET SL ONE ×2 (15:50→18:00)
[2017-05-13] MEDS: CYCLOBENZAPRINE HCL 5 MG TABLET PO SCH ×2 (16:05→21:10)
[2017-05-13] MEDS: NICOTINE POLACRILEX 2 MG GUM BUC PRN ×2 (16:07→21:09)
[2017-05-13] MEDS: THIAMINE HCL 100 MG TABLET (FP) PO SCH (21:10)
[2017-05-13] MEDS: AMITRIPTYLINE HCL 25 MG TABLET (FP) PO SCH (21:10)
[2017-05-13] MEDS: GABAPENTIN 300 MG CAPSULE (FP) PO SCH (21:10)
--- NOTE | 2017-05-13 22:03 | PN ---
[facility] Progress Note Note: Psychiatric Nurse practitioner: Pairer Odds received a call from RN reguarding patient's psychotrophic medications. Pt. was seen by account underwriter on [facility] detox and was admitted to the rehab unit this evening. Pt. requesting her medication regime of seroquel 400mg +Effexor 150mg XL. Medication ordered. Will continue to monitor.
[2017-05-13] MEDS: QUEtiapine FUMARATE 400 MG TABLET PO SCH (23:00)
[2017-05-14] MEDS: CYCLOBENZAPRINE HCL 5 MG TABLET PO SCH ×3 (06:22→21:22)
[2017-05-14] MEDS: GABAPENTIN 300 MG CAPSULE (FP) PO SCH ×3 (06:22→21:22)
[2017-05-14] MEDS: NICOTINE POLACRILEX 2 MG GUM BUC PRN ×6 (06:23→21:24)
[2017-05-14] MEDS: VENLAFAXINE HCL 75 MG E.R. CAPSULES (FP) PO SCH (10:10)
[2017-05-14] MEDS: NICOTINE 14 MG/24 HOURS TOPICAL PATCH TD SCH (10:10)
[2017-05-14] MEDS: BUPRENORPHINE/NALOXONE 8 MG/2 MG FILM PACKET SL SCH (10:11)
[2017-05-14] MEDS: PRENATAL VITAMINS W/ FOLIC ACID TABLET (FP) PO SCH (10:11)
[2017-05-14] MEDS ORDERED: PT OWN MED DRAWER 7, Y5N ONE (12:45)
[2017-05-14] MEDS: AMITRIPTYLINE HCL 25 MG TABLET (FP) PO SCH (21:22)
[2017-05-14] MEDS: THIAMINE HCL 100 MG TABLET (FP) PO SCH (21:22)
[2017-05-14] MEDS: QUEtiapine FUMARATE 400 MG TABLET PO SCH (21:35)
[2017-05-15] MEDS: CYCLOBENZAPRINE HCL 5 MG TABLET PO SCH ×3 (06:37→21:17)
[2017-05-15] MEDS: GABAPENTIN 300 MG CAPSULE (FP) PO SCH ×3 (06:37→21:17)
[2017-05-15] MEDS: NICOTINE POLACRILEX 2 MG GUM BUC PRN ×4 (06:38→18:20)
[2017-05-15] MEDS: NICOTINE 14 MG/24 HOURS TOPICAL PATCH TD SCH (10:03)
[2017-05-15] MEDS: VENLAFAXINE HCL 75 MG E.R. CAPSULES (FP) PO SCH (10:03)
[2017-05-15] MEDS: PRENATAL VITAMINS W/ FOLIC ACID TABLET (FP) PO SCH (10:03)
[2017-05-15] MEDS: BUPRENORPHINE/NALOXONE 8 MG/2 MG FILM PACKET SL SCH (10:04)
--- NOTE | 2017-05-15 10:21 | HP ---
Psychiatrist Admission - Data Date of interview: 05/15/17 Admission source: [address] [place] [address] Identifying data: This is the third admission to [address] [place] [address] for this 31 years old single mother of 2 years old daughter,child resides with the patient's mother.Patient is homeless, supported by PA. Medical History: unremarkable Psychiatric History: Patient reports some sleeping difficulties which she usually controls with Seroquel.Patient sees psychiatrist at [facility], currently she is on Seroquel 400 mg po hs. Physical/Sexual Abuse/Trauma History: denies Vital Signs: Vital Signs - 24 hr 05/15/17 05/15/17 05/15/17 00:30 03:30 07:34 Temperature 97.6 F Pulse Rate 62 Respiratory 17 16 18 Rate Blood Pressure 117/79 Allergies/Adverse Reactions: Allergies Allergy/AdvReac Type Severity Reaction Status Date / Time No Known Allergies Allergy Verified 05/10/17 15:08 Date of last physical exam: 05/10/17 Concur with the findings of this exam: Yes - Substance Abuse/Tx History Hx Alcohol Use: Yes (reports drinking since 24 yo,6 packs daily) Hx Substance Use: Yes (heroin since 29 yo,sniffing 5 bags daily,Xanax since 27 yo 2mg 5 times a da) Substance Use Type: Alcohol, Heroin, Marijuana, Tranquilizers Hx Substance Use Treatment: Yes (completed this program in Feb 2017,relapsed a few days ago) Mental Status Exam - Mental Status Exam Alert and Oriented to: Time, Place, Person Cognitive Function: Grossly Intact Patient Appearance: Well Groomed Mood: Euthymic Affect: Mood Congruent Patient Behavior: Cooperative Speech Pattern: Clear Voice Loudness: Normal Thought Process: Goal Oriented Thought Disorder: Not Present Hallucinations: Denies Suicidal Ideation: Denies Homicidal Ideation: Denies Insight/Judgement: Fair Sleep: Fair Appetite: Good Muscle strength/Tone: Normal Gait/Station: Normal Psychiatric Findings - Problem List ([place] 1, 2,3) (1) Benzodiazepine dependence Current Visit: Yes Status: Chronic (2) Opioid dependence on agonist therapy Current Visit: Yes Status: Chronic (3) Substance induced mood disorder Current Visit: Yes Status: Chronic (4) Marijuana dependence Current Visit: Yes Status: Chronic (5) Nicotine dependence Current Visit: Yes Status: Chronic Qualifiers: - Initial Treatment Plan Initial Treatment Plan: Seroquel 40 mg po hs and Effexor XR 150 mg po daily.
[2017-05-15] MEDS: THIAMINE HCL 100 MG TABLET (FP) PO SCH (21:16)
[2017-05-15] MEDS: AMITRIPTYLINE HCL 25 MG TABLET (FP) PO SCH (21:17)
[2017-05-15] MEDS: QUEtiapine FUMARATE 400 MG TABLET PO SCH (21:18)
[2017-05-16] MEDS: GABAPENTIN 300 MG CAPSULE (FP) PO SCH ×3 (06:21→21:15)
[2017-05-16] MEDS: CYCLOBENZAPRINE HCL 5 MG TABLET PO SCH ×3 (06:21→21:16)
[2017-05-16] MEDS: NICOTINE POLACRILEX 2 MG GUM BUC PRN ×5 (06:22→21:17)
[2017-05-16] MEDS: PRENATAL VITAMINS W/ FOLIC ACID TABLET (FP) PO SCH (09:21)
[2017-05-16] MEDS: VENLAFAXINE HCL 75 MG E.R. CAPSULES (FP) PO SCH (09:21)
[2017-05-16] MEDS: BUPRENORPHINE/NALOXONE 8 MG/2 MG FILM PACKET SL SCH (09:22)
[2017-05-16] MEDS: NICOTINE 14 MG/24 HOURS TOPICAL PATCH TD SCH (09:22)
[2017-05-16] MEDS: THIAMINE HCL 100 MG TABLET (FP) PO SCH (21:15)
[2017-05-16] MEDS: QUEtiapine FUMARATE 400 MG TABLET PO SCH (21:16)
[2017-05-16] MEDS: AMITRIPTYLINE HCL 25 MG TABLET (FP) PO SCH (21:17)
[2017-05-17] MEDS: GABAPENTIN 300 MG CAPSULE (FP) PO SCH ×3 (06:24→21:26)
[2017-05-17] MEDS: CYCLOBENZAPRINE HCL 5 MG TABLET PO SCH ×3 (06:24→21:26)
[2017-05-17] MEDS: NICOTINE POLACRILEX 2 MG GUM BUC PRN ×5 (06:24→21:28)
[2017-05-17] MEDS: NICOTINE 14 MG/24 HOURS TOPICAL PATCH TD SCH (09:52)
[2017-05-17] MEDS: VENLAFAXINE HCL 75 MG E.R. CAPSULES (FP) PO SCH (09:52)
[2017-05-17] MEDS: BUPRENORPHINE/NALOXONE 8 MG/2 MG FILM PACKET SL SCH (09:53)
[2017-05-17] MEDS: PRENATAL VITAMINS W/ FOLIC ACID TABLET (FP) PO SCH (09:54)
[2017-05-17] MEDS ORDERED: BUPRENORPHINE/NALOXONE 2 MG/0.5 MG FILM PACKET SL ONE (13:02)
--- NOTE | 2017-05-17 13:02 | PN ---
[facility] Progress Note (SOAP) Subjective: patient reporting cravings, desire to use on 8mg daily - woudl like to increase dose Objective: 05/17/17 13:01 Vital Signs - 24 hr 05/16/17 05/17/17 05/17/17 14:08 00:30 03:30 Temperature 97.5 F L Pulse Rate 65 Respiratory 18 16 16 Rate Blood Pressure 111/75 05/17/17 07:15 Temperature 98.3 F Pulse Rate 98 H Respiratory 16 Rate Blood Pressure 100/63 Laboratory Tests 05/14/17 08:50 HIV 1&2 Antibody Screen Negative HIV P24 Antigen Negative lab s reviewed Assessment: 05/17/17 13:02 OUD - on MAT increase dose to 12mg daily, extr 4mg today
[2017-05-17] MEDS: AMITRIPTYLINE HCL 25 MG TABLET (FP) PO SCH (21:27)
[2017-05-17] MEDS: QUEtiapine FUMARATE 400 MG TABLET PO SCH (21:27)
[2017-05-17] MEDS: THIAMINE HCL 100 MG TABLET (FP) PO SCH (21:28)
[2017-05-18] MEDS: CYCLOBENZAPRINE HCL 5 MG TABLET PO SCH ×3 (06:08→21:34)
[2017-05-18] MEDS: GABAPENTIN 300 MG CAPSULE (FP) PO SCH ×3 (06:08→21:33)
[2017-05-18] MEDS: NICOTINE POLACRILEX 2 MG GUM BUC PRN ×3 (06:08→13:11)
[2017-05-18] MEDS: VENLAFAXINE HCL 75 MG E.R. CAPSULES (FP) PO SCH (09:06)
[2017-05-18] MEDS: BUPRENORPHINE HCL/NALOXONE 12 MG-3 MG SL FILM PACKET SL SCH (09:06)
[2017-05-18] MEDS: BUPRENORPHINE/NALOXONE 8 MG/2 MG FILM PACKET SL SCH (09:06)
[2017-05-18] MEDS: NICOTINE 14 MG/24 HOURS TOPICAL PATCH TD SCH (09:06)
[2017-05-18] MEDS: PRENATAL VITAMINS W/ FOLIC ACID TABLET (FP) PO SCH (09:06)
[2017-05-18] MEDS: ACETAMINOPHEN 325 MG TABLET (FP) PO PRN ×2 (17:21→21:36)
[2017-05-18] MEDS: THIAMINE HCL 100 MG TABLET (FP) PO SCH (21:33)
[2017-05-18] MEDS: AMITRIPTYLINE HCL 25 MG TABLET (FP) PO SCH (21:34)
[2017-05-18] MEDS: QUEtiapine FUMARATE 400 MG TABLET PO SCH (21:34)
[2017-05-19] MEDS: GABAPENTIN 300 MG CAPSULE (FP) PO SCH ×3 (06:21→21:27)
[2017-05-19] MEDS: CYCLOBENZAPRINE HCL 5 MG TABLET PO SCH ×3 (06:22→21:27)
[2017-05-19] MEDS: ACETAMINOPHEN 325 MG TABLET (FP) PO PRN ×2 (06:22→12:43)
[2017-05-19] MEDS: VENLAFAXINE HCL 75 MG E.R. CAPSULES (FP) PO SCH (10:20)
[2017-05-19] MEDS: BUPRENORPHINE HCL/NALOXONE 12 MG-3 MG SL FILM PACKET SL SCH (10:20)
[2017-05-19] MEDS: NICOTINE 14 MG/24 HOURS TOPICAL PATCH TD SCH (10:20)
[2017-05-19] MEDS: PRENATAL VITAMINS W/ FOLIC ACID TABLET (FP) PO SCH (10:20)
[2017-05-19] MEDS: NICOTINE POLACRILEX 2 MG GUM BUC PRN ×5 (10:21→21:29)
[2017-05-19] MEDS: PANTOPRAZOLE 40 MG TABLET (FP) PO SCH (15:52)
[2017-05-19] MEDS: NAPROXEN 500 MG TABLET (FP) PO SCH ×2 (15:52→21:27)
[2017-05-19] MEDS: MAG HYDROX/ALH/SMC/DPHA/LIDO 240 ML MOUTHWASH MM SCH (18:12)
[2017-05-19] MEDS: AMITRIPTYLINE HCL 25 MG TABLET (FP) PO SCH (21:27)
[2017-05-19] MEDS: QUEtiapine FUMARATE 400 MG TABLET PO SCH (21:28)
[2017-05-19] MEDS: THIAMINE HCL 100 MG TABLET (FP) PO SCH (21:28)
[2017-05-20] MEDS: MAG HYDROX/ALH/SMC/DPHA/LIDO 240 ML MOUTHWASH MM SCH ×5 (00:03→23:04)
[2017-05-20] MEDS: CYCLOBENZAPRINE HCL 5 MG TABLET PO SCH ×3 (06:37→21:27)
[2017-05-20] MEDS: GABAPENTIN 300 MG CAPSULE (FP) PO SCH ×3 (06:37→21:27)
[2017-05-20] MEDS ORDERED: PT OWN MED DRAWER 7, Y5N ONE ×2 (06:42→13:40)
[2017-05-20] MEDS: VENLAFAXINE HCL 75 MG E.R. CAPSULES (FP) PO SCH (09:53)
[2017-05-20] MEDS: PRENATAL VITAMINS W/ FOLIC ACID TABLET (FP) PO SCH (09:53)
[2017-05-20] MEDS: NICOTINE 14 MG/24 HOURS TOPICAL PATCH TD SCH (09:54)
[2017-05-20] MEDS: PANTOPRAZOLE 40 MG TABLET (FP) PO SCH (09:54)
[2017-05-20] MEDS: NAPROXEN 500 MG TABLET (FP) PO SCH ×2 (09:54→21:27)
[2017-05-20] MEDS: BUPRENORPHINE HCL/NALOXONE 12 MG-3 MG SL FILM PACKET SL SCH (09:54)
[2017-05-20] MEDS: NICOTINE POLACRILEX 2 MG GUM BUC PRN ×2 (09:56→13:23)
--- NOTE | 2017-05-20 13:29 | PN ---
S Progress Note (SOAP) Subjective: c/o currently 14mg Nicotine patch and 2mg Nicotine gum current not helping with smoking cravings. As per patient she currently smokes 1 1/2 packs of cigarettes per day. Request for Suboxone dosage to be increase from 12mg to 16. Objective: 05/20/17 13:31 Vital Signs Period Temp Pulse Resp BP Sys/Courtney Pulse Ox Last 24 Hr 97.9 F 87 18-18 110/77 Laboratory Last Values HIV 1&2 Antibody Screen Negative 05/14/17 08:50 HIV P24 Antigen Negative 05/14/17 08:50 GENERAL APPEARANCE: Well developed, well nourished, alert and cooperative, and appears to be in no acute distress. MUSKULOSKELETAL: Adequately aligned spine. ROM intact spine and extremities. No joint erythema or tenderness. Normal muscular development. Normal gait. NEUROLOGICAL: CN II-XII intact. Strength and sensation symmetric and intact throughout. Reflexes 2+ throughout. Cerebellar testing normal. SKIN: Skin normal color, texture and turgor with no lesions or eruptions. Assessment: 05/20/17 13:32 withdrawal symptoms Plan: Increase fluids Continue to monitor Consulted with Dr. sTe re: Suboxone increase, pending Nicotine gum increase to 4mg Nicotine patch increase to 21mg
[2017-05-20] MEDS: NICOTINE POLACRILEX 4 MG GUM BUC PRN ×3 (16:41→21:29)
[2017-05-20] MEDS: QUEtiapine FUMARATE 400 MG TABLET PO SCH (21:27)
[2017-05-20] MEDS: AMITRIPTYLINE HCL 25 MG TABLET (FP) PO SCH (21:27)
[2017-05-20] MEDS: THIAMINE HCL 100 MG TABLET (FP) PO SCH (21:27)
[2017-05-21] MEDS: GABAPENTIN 300 MG CAPSULE (FP) PO SCH ×3 (06:13→21:34)
[2017-05-21] MEDS: CYCLOBENZAPRINE HCL 5 MG TABLET PO SCH ×3 (06:13→21:34)
[2017-05-21] MEDS: NICOTINE POLACRILEX 4 MG GUM BUC PRN ×4 (06:14→18:06)
[2017-05-21] MEDS: MAG HYDROX/ALH/SMC/DPHA/LIDO 240 ML MOUTHWASH MM SCH ×4 (06:15→23:09)
[2017-05-21] MEDS: NICOTINE 21 MG/24 HOURS TOPICAL PATCH TD SCH (10:30)
[2017-05-21] MEDS: VENLAFAXINE HCL 75 MG E.R. CAPSULES (FP) PO SCH (10:31)
[2017-05-21] MEDS: NAPROXEN 500 MG TABLET (FP) PO SCH ×2 (10:32→21:34)
[2017-05-21] MEDS: PRENATAL VITAMINS W/ FOLIC ACID TABLET (FP) PO SCH (10:32)
[2017-05-21] MEDS: PANTOPRAZOLE 40 MG TABLET (FP) PO SCH (10:33)
[2017-05-21] MEDS: BUPRENORPHINE HCL/NALOXONE 12 MG-3 MG SL FILM PACKET SL SCH (10:34)
[2017-05-21] MEDS ORDERED: PT OWN MED DRAWER 7, Y5N ONE (13:59)
[2017-05-21] MEDS: AMOX TR/POT CLAV 875MG/125MG TABLETS (FP) PO SCH (18:00)
[2017-05-21] MEDS: AMITRIPTYLINE HCL 25 MG TABLET (FP) PO SCH (21:34)
[2017-05-21] MEDS: QUEtiapine FUMARATE 400 MG TABLET PO SCH (21:34)
[2017-05-21] MEDS: THIAMINE HCL 100 MG TABLET (FP) PO SCH (21:35)
[2017-05-22] MEDS: CYCLOBENZAPRINE HCL 5 MG TABLET PO SCH ×3 (06:20→21:13)
[2017-05-22] MEDS: MAG HYDROX/ALH/SMC/DPHA/LIDO 240 ML MOUTHWASH MM SCH ×3 (06:20→18:22)
[2017-05-22] MEDS: GABAPENTIN 300 MG CAPSULE (FP) PO SCH ×3 (06:20→21:13)
[2017-05-22] MEDS: NICOTINE POLACRILEX 4 MG GUM BUC PRN ×7 (06:21→22:25)
[2017-05-22] MEDS ORDERED: PT OWN MED DRAWER 7, Y5N ONE (06:51)
[2017-05-22] MEDS: AMOX TR/POT CLAV 875MG/125MG TABLETS (FP) PO SCH ×2 (07:54→17:58)
[2017-05-22] MEDS: PANTOPRAZOLE 40 MG TABLET (FP) PO SCH (09:37)
[2017-05-22] MEDS: VENLAFAXINE HCL 75 MG E.R. CAPSULES (FP) PO SCH (09:37)
[2017-05-22] MEDS: NICOTINE 21 MG/24 HOURS TOPICAL PATCH TD SCH (09:37)
[2017-05-22] MEDS: PRENATAL VITAMINS W/ FOLIC ACID TABLET (FP) PO SCH (09:38)
[2017-05-22] MEDS: NAPROXEN 500 MG TABLET (FP) PO SCH ×2 (09:38→21:14)
[2017-05-22] MEDS: BUPRENORPHINE/NALOXONE 8 MG/2 MG FILM PACKET SL SCH (09:39)
--- NOTE | 2017-05-22 11:56 | PN ---
S Progress Note (SOAP) Subjective: c/o hot flashes, chills, achy, Objective: 05/22/17 11:54 Vital Signs - 24 hr 05/22/17 05/22/17 05/22/17 00:30 03:30 07:06 Temperature 98.0 F Pulse Rate 75 Respiratory 18 18 18 Rate Blood Pressure 110/70 05/22/17 10:00 Temperature 98 F Pulse Rate 98 H Respiratory 17 Rate Blood Pressure 102/58 Laboratory Tests 05/14/17 08:50 HIV 1&2 Antibody Screen Negative HIV P24 Antigen Negative labs reveiwed Assessment: 05/22/17 11:54 oud - cont suboxone recently increased dose to 16mg jennifer will stay at current dose, reports 24mg needed in past. still has cravings or desire to use, drug drreams.
[2017-05-22] MEDS: QUEtiapine FUMARATE 400 MG TABLET PO SCH (21:14)
[2017-05-22] MEDS: AMITRIPTYLINE HCL 25 MG TABLET (FP) PO SCH (21:14)
[2017-05-22] MEDS: THIAMINE HCL 100 MG TABLET (FP) PO SCH (21:15)
[2017-05-23] MEDS: MAG HYDROX/ALH/SMC/DPHA/LIDO 240 ML MOUTHWASH MM SCH ×4 (01:15→18:19)
[2017-05-23] MEDS: CYCLOBENZAPRINE HCL 5 MG TABLET PO SCH ×3 (06:21→21:27)
[2017-05-23] MEDS: GABAPENTIN 300 MG CAPSULE (FP) PO SCH ×3 (06:21→21:28)
[2017-05-23] MEDS: NICOTINE POLACRILEX 4 MG GUM BUC PRN ×5 (06:22→22:27)
[2017-05-23] MEDS: AMOX TR/POT CLAV 875MG/125MG TABLETS (FP) PO SCH ×2 (08:27→18:19)
[2017-05-23] MEDS: NICOTINE 21 MG/24 HOURS TOPICAL PATCH TD SCH (10:18)
[2017-05-23] MEDS: BUPRENORPHINE/NALOXONE 8 MG/2 MG FILM PACKET SL SCH (10:18)
[2017-05-23] MEDS: NAPROXEN 500 MG TABLET (FP) PO SCH ×2 (10:19→21:27)
[2017-05-23] MEDS: PANTOPRAZOLE 40 MG TABLET (FP) PO SCH (10:19)
[2017-05-23] MEDS: VENLAFAXINE HCL 75 MG E.R. CAPSULES (FP) PO SCH (10:19)
[2017-05-23] MEDS: PRENATAL VITAMINS W/ FOLIC ACID TABLET (FP) PO SCH (10:19)
[2017-05-23] MEDS: AMITRIPTYLINE HCL 25 MG TABLET (FP) PO SCH (21:27)
[2017-05-23] MEDS: THIAMINE HCL 100 MG TABLET (FP) PO SCH (21:27)
[2017-05-23] MEDS: QUEtiapine FUMARATE 400 MG TABLET PO SCH (21:28)
[2017-05-24] MEDS: MAG HYDROX/ALH/SMC/DPHA/LIDO 240 ML MOUTHWASH MM SCH ×4 (00:15→17:07)
[2017-05-24] MEDS: NICOTINE POLACRILEX 4 MG GUM BUC PRN ×4 (06:40→17:07)
[2017-05-24] MEDS: GABAPENTIN 300 MG CAPSULE (FP) PO SCH ×3 (06:40→21:28)
[2017-05-24] MEDS: CYCLOBENZAPRINE HCL 5 MG TABLET PO SCH ×3 (06:40→21:28)
[2017-05-24] MEDS: AMOX TR/POT CLAV 875MG/125MG TABLETS (FP) PO SCH ×2 (08:37→17:06)
[2017-05-24] MEDS: BUPRENORPHINE/NALOXONE 8 MG/2 MG FILM PACKET SL SCH (10:12)
[2017-05-24] MEDS: VENLAFAXINE HCL 75 MG E.R. CAPSULES (FP) PO SCH (10:12)
[2017-05-24] MEDS: PRENATAL VITAMINS W/ FOLIC ACID TABLET (FP) PO SCH (10:12)
[2017-05-24] MEDS: NICOTINE 21 MG/24 HOURS TOPICAL PATCH TD SCH (10:12)
[2017-05-24] MEDS: PANTOPRAZOLE 40 MG TABLET (FP) PO SCH (10:12)
[2017-05-24] MEDS: NAPROXEN 500 MG TABLET (FP) PO SCH ×2 (10:12→21:28)
[2017-05-24] MEDS ORDERED: PT OWN MED DRAWER 7, Y5N ONE (12:14)
[2017-05-24] MEDS: THIAMINE HCL 100 MG TABLET (FP) PO SCH (21:28)
[2017-05-24] MEDS: AMITRIPTYLINE HCL 25 MG TABLET (FP) PO SCH (21:28)
[2017-05-24] MEDS: QUEtiapine FUMARATE 400 MG TABLET PO SCH (21:29)
[2017-05-25] MEDS: MAG HYDROX/ALH/SMC/DPHA/LIDO 240 ML MOUTHWASH MM SCH ×4 (00:41→17:35)
[2017-05-25] MEDS: CYCLOBENZAPRINE HCL 5 MG TABLET PO SCH ×3 (06:37→21:29)
[2017-05-25] MEDS: GABAPENTIN 300 MG CAPSULE (FP) PO SCH ×3 (06:37→21:29)
[2017-05-25] MEDS: NICOTINE POLACRILEX 4 MG GUM BUC PRN ×4 (06:38→14:45)
[2017-05-25] MEDS ORDERED: PT OWN MED DRAWER 7, Y5N ONE (07:05)
[2017-05-25] MEDS: AMOX TR/POT CLAV 875MG/125MG TABLETS (FP) PO SCH ×3 (08:40→17:34)
[2017-05-25] MEDS: PRENATAL VITAMINS W/ FOLIC ACID TABLET (FP) PO SCH (10:15)
[2017-05-25] MEDS: VENLAFAXINE HCL 75 MG E.R. CAPSULES (FP) PO SCH (10:16)
[2017-05-25] MEDS: PANTOPRAZOLE 40 MG TABLET (FP) PO SCH (10:16)
[2017-05-25] MEDS: NAPROXEN 500 MG TABLET (FP) PO SCH ×2 (10:16→21:29)
[2017-05-25] MEDS: NICOTINE 21 MG/24 HOURS TOPICAL PATCH TD SCH (10:17)
[2017-05-25] MEDS: BUPRENORPHINE/NALOXONE 8 MG/2 MG FILM PACKET SL SCH (10:17)
[2017-05-25] MEDS: THIAMINE HCL 100 MG TABLET (FP) PO SCH (21:28)
[2017-05-25] MEDS: AMITRIPTYLINE HCL 25 MG TABLET (FP) PO SCH (21:29)
[2017-05-25] MEDS: QUEtiapine FUMARATE 400 MG TABLET PO SCH (21:30)
--- NOTE | 2017-05-26 00:11 | PN ---
[facility] Progress Note Note: Patient currently on Suboxone 16 mg. Patient will discharge 05/27/17 to [facility] program and [facility] to follow up with her drug treatment. Patient is scheduled for 06/03/17 for initial assessment for outpatient Suboxone treatment program. Patient to continue Suboxone 16 mg x 2 weeks upon discharge
[2017-05-26] MEDS: MAG HYDROX/ALH/SMC/DPHA/LIDO 240 ML MOUTHWASH MM SCH ×4 (00:32→18:14)
[2017-05-26] MEDS: CYCLOBENZAPRINE HCL 5 MG TABLET PO SCH ×3 (06:22→21:21)
[2017-05-26] MEDS: GABAPENTIN 300 MG CAPSULE (FP) PO SCH ×3 (06:23→21:21)
[2017-05-26] MEDS: AMOX TR/POT CLAV 875MG/125MG TABLETS (FP) PO SCH ×2 (09:00→18:14)
[2017-05-26] MEDS: VENLAFAXINE HCL 75 MG E.R. CAPSULES (FP) PO SCH (09:47)
[2017-05-26] MEDS: PRENATAL VITAMINS W/ FOLIC ACID TABLET (FP) PO SCH (09:47)
[2017-05-26] MEDS: NAPROXEN 500 MG TABLET (FP) PO SCH ×2 (09:48→21:21)
[2017-05-26] MEDS: PANTOPRAZOLE 40 MG TABLET (FP) PO SCH (09:49)
[2017-05-26] MEDS: NICOTINE 21 MG/24 HOURS TOPICAL PATCH TD SCH (09:49)
[2017-05-26] MEDS: BUPRENORPHINE/NALOXONE 8 MG/2 MG FILM PACKET SL SCH (09:51)
[2017-05-26] MEDS: NICOTINE POLACRILEX 4 MG GUM BUC PRN ×5 (09:52→21:20)
--- NOTE | 2017-05-26 16:07 | PN ---
[facility] Progress Note (SOAP) Subjective: discussed medication on discharge Objective: 05/26/17 16:06 Vital Signs - 24 hr 05/26/17 05/26/17 05/26/17 00:30 03:30 07:06 Temperature 98.2 F Pulse Rate 100 H Respiratory 16 16 16 Rate Blood Pressure 103/66 Laboratory Tests 05/14/17 08:50 HIV 1&2 Antibody Screen Negative HIV P24 Antigen Negative labs reviewed Assessment: 05/26/17 16:06 oud -suboxone 2 weeks prescribed, antibiotics x1 week
[2017-05-26] MEDS: THIAMINE HCL 100 MG TABLET (FP) PO SCH (21:20)
[2017-05-26] MEDS: AMITRIPTYLINE HCL 25 MG TABLET (FP) PO SCH (21:21)
[2017-05-26] MEDS: QUEtiapine FUMARATE 400 MG TABLET PO SCH (21:21)
[2017-05-27] MEDS: MAG HYDROX/ALH/SMC/DPHA/LIDO 240 ML MOUTHWASH MM SCH ×4 (00:25→17:41)
[2017-05-27] MEDS: CYCLOBENZAPRINE HCL 5 MG TABLET PO SCH ×3 (06:24→21:48)
[2017-05-27] MEDS: GABAPENTIN 300 MG CAPSULE (FP) PO SCH ×3 (06:24→21:48)
[2017-05-27] MEDS: NICOTINE POLACRILEX 4 MG GUM BUC PRN ×4 (06:25→17:41)
[2017-05-27 07:28] VITALS: BP 103/69; PULSE 84; TEMP 97.7
[2017-05-27] MEDS: AMOX TR/POT CLAV 875MG/125MG TABLETS (FP) PO SCH ×2 (08:35→17:41)
--- NOTE | 2017-05-27 09:17 | PN ---
Psychiatric Progress Note Vital Signs: Vital Signs Period Temp Pulse Resp BP Sys/Courtney Pulse Ox Last 24 Hr 97.7 F 84 16-18 103/69 Date of Session: 05/27/17 Chief Complaint:: Discharge visit HPI: Patient addressed Cannabis,Anxiolytic and Opioid dependence comorbid with Substance induced mood disorder. Current Medications: Active Medications Generic Name Dose Route Start Last Admin Trade Name Freq PRN Reason Stop Dose Admin Acetaminophen 650 mg 05/13/17 15:15 05/19/17 12:43 Tylenol - PO 650 mg Q4H PRN Administration FEVER Al Hydroxide/Mg Hydroxide 30 ml 05/13/17 15:15 Mylanta Oral Suspension - PO Q6H PRN DYSPEPSIA Amitriptyline HCl 25 mg 05/13/17 22:00 05/26/17 21:21 Elavil - PO 25 mg HS GURDEEP Administration Amoxicillin/Clavulanate Potassium 1 tab 05/21/17 17:30 05/27/17 08:35 Augmentin - 875mg Tablet PO Not Given BID@0800,1730 [facility] Buprenorphine/Naloxone 2 each 05/22/17 10:00 05/26/17 09:51 Suboxone 8mg/2mg Sl Film - SL 05/28/17 09:59 2 each DAILY GURDEEP Administration Cyclobenzaprine HCl 5 mg 05/13/17 16:00 05/27/17 06:24 Cyclobenzaprine Hcl PO 5 mg TID GURDEEP Administration Eucalyptus/Menthol/Phenol/Sorbitol 1 each 05/13/17 15:15 Cepastat Lozenge - MM Q4H PRN SORE THROAT Gabapentin 900 mg 05/13/17 22:00 05/27/17 06:24 Neurontin - PO 900 mg TID GURDEEP Administration Guaifenesin 10 ml 05/13/17 15:15 Robitussin Dm - PO Q6H PRN COUGH Hydroxyzine Pamoate 50 mg 05/13/17 15:15 Vistaril - PO Q4H PRN AGITATION Lidocaine/Aluminum/Magnesium/Simeth 5 ml 05/19/17 18:00 05/27/17 07:06 Magic Mouthwash *Sjr Formula* - MM Not Given Q6HPO GURDEEP Loperamide HCl 4 mg 05/13/17 15:15 Imodium - PO Q6H PRN DIARRHEA Magnesium Citrate 300 ml 05/13/17 15:15 Citroma - PO Q48H PRN CONSTIPATION Magnesium Hydroxide 30 ml 05/13/17 15:15 Milk Of Magnesia - PO DAILY PRN CONSTIPATION Naproxen 500 mg 05/19/17 14:30 05/26/17 21:21 Naprosyn - PO 500 mg BID GURDEEP Administration Nicotine 21 mg 05/21/17 10:00 05/26/17 09:49 Nicoderm Patch - TD 21 mg DAILY GURDEEP Administration Nicotine Polacrilex 4 mg 05/20/17 13:24 05/27/17 06:25 Nicorette Gum - BUC 4 mg Q2H PRN Administration NICOTINE REPLACEMENT RX Pantoprazole Sodium 40 mg 05/19/17 14:30 05/26/17 09:49 Protonix - PO 40 mg DAILY GURDEEP Administration Multivit/Folic Acid/Iron 1 tab 05/14/17 10:00 05/26/17 09:47 Vitamins (Sjr) - PO 1 tab DAILY GURDEEP Administration Pseudoephedrine/Triprolidine 1 combo 05/13/17 15:15 Actifed - PO TID PRN NASAL CONGESTION Quetiapine Fumarate 400 mg 05/13/17 22:00 05/26/17 21:21 Seroquel - PO 400 mg HS GURDEEP Administration Thiamine HCl 100 mg 05/13/17 22:00 05/26/17 21:20 Vitamin B1 - PO 100 mg HS GURDEEP Administration Venlafaxine HCl 150 mg 05/14/17 10:00 05/26/17 09:47 Effexor Xr - PO 150 mg DAILY GURDEEP Administration Current Side Effect: No Lab tests ordered: No Lab tests reviewed: Yes Provider note:: Patient will complete this program tomorrow.she has met her treatment goals and will continue to address her issues on outpatient basis .Patient reports finding that current medications including Effexor XR 150 mg po daily,Seroquel 400 mg po hs,Elavil 25 mg po hs and Neurontin 600 mg po tid help to cope with anxiety,mood instability and depression.Scripts for 30 days provided.Psychotherpay provided focusing on relapse prevention.Patient is stable for discharge tomorrow. Total face to face time:: 30 Mental Status Exam - Mental Status Exam Alert and Oriented to: Time, Place, Person Cognitive Function: Grossly Intact Patient Appearance: Well Groomed Mood: Euthymic Affect: Appropriate, Mood Congruent Patient Behavior: Appropriate, Cooperative Speech Pattern: Clear Voice Loudness: Normal Thought Process: Goal Oriented Thought Disorder: Not Present Hallucinations: Denies Suicidal Ideation: Denies Homicidal Ideation: Denies Insight/Judgement: Fair Sleep: Fair Appetite: Good Muscle strength/Tone: Normal Gait/Station: Normal Psychiatric Treatment Plan - Problem List (5) Nicotine dependence Qualifiers:
[2017-05-27] MEDS: NAPROXEN 500 MG TABLET (FP) PO SCH ×2 (10:14→21:48)
[2017-05-27] MEDS: PRENATAL VITAMINS W/ FOLIC ACID TABLET (FP) PO SCH (10:14)
[2017-05-27] MEDS: VENLAFAXINE HCL 75 MG E.R. CAPSULES (FP) PO SCH (10:15)
[2017-05-27] MEDS: NICOTINE 21 MG/24 HOURS TOPICAL PATCH TD SCH (10:15)
[2017-05-27] MEDS: PANTOPRAZOLE 40 MG TABLET (FP) PO SCH (10:15)
[2017-05-27] MEDS: BUPRENORPHINE/NALOXONE 8 MG/2 MG FILM PACKET SL SCH (10:16)
[2017-05-27] MEDS ORDERED: BUPRENORPHINE/NALOXONE 8 MG/2 MG FILM PACKET SL SCH (13:00)
[2017-05-27] MEDS: THIAMINE HCL 100 MG TABLET (FP) PO SCH (21:47)
[2017-05-27] MEDS: AMITRIPTYLINE HCL 25 MG TABLET (FP) PO SCH (21:48)
[2017-05-27] MEDS: QUEtiapine FUMARATE 400 MG TABLET PO SCH (21:49)
[2017-05-28] MEDS: MAG HYDROX/ALH/SMC/DPHA/LIDO 240 ML MOUTHWASH MM SCH ×2 (00:55→06:28)
[2017-05-28] MEDS ORDERED: BUPRENORPHINE/NALOXONE 8 MG/2 MG FILM PACKET SL SCH ×2 (06:00→10:00)
[2017-05-28] MEDS: CYCLOBENZAPRINE HCL 5 MG TABLET PO SCH (06:28)
[2017-05-28] MEDS: GABAPENTIN 300 MG CAPSULE (FP) PO SCH (06:28)
[2017-05-28] MEDS: NICOTINE POLACRILEX 4 MG GUM BUC PRN (06:30)
== END 2017-05-28 07:00 | disposition home or self-care (01) | DRG 772 ==
LOC: YASAS 13:40 → Y3E 13:43
PROVIDERS: ADMIT Psychiatry & Neurology Psychiatry; ATTEND Psychiatry & Neurology Psychiatry
PROC: HZ42ZZZ Group Counseling for Substance Abuse Treatment, Cognitive-Behavioral (ICD-10-PCS; principal; 2017-05-13)
DX: F13.20 Sedative, hypnotic or anxiolytic dependence, uncomplicated (principal); F11.20 Opioid dependence, uncomplicated; F12.20 Cannabis dependence, uncomplicated; F17.210 Nicotine dependence, cigarettes, uncomplicated; F19.24 Other psychoactive substance dependence with psychoactive substance-induced mood disorder; F33.9 Major depressive disorder, recurrent, unspecified; M54.5 Low back pain
CPT/HCPCS: 36415; 87389

== ENCOUNTER 2017-08-25 15:33 | Inpatient (IN) | payer OTHER ==
[2017-08-25 18:39] VITALS: BMI 29.5
--- NOTE | 2017-08-25 19:41 | HP ---
Admission [facility] Chief Complaint: I am here to continue to maintain my sobriety. Allergies/Adverse Reactions: Allergies Allergy/AdvReac Type Severity Reaction Status Date / Time No Known Allergies Allergy Verified 08/25/17 19:17 History of Present Illness: pt is a 31yr old female with a history of benzodiazapine dependence seeking rehab for further treatment. Pt urine toxicology is negative of all illicit drugs.pt has a history of asthma and will require a bed by the window. Exam Limitations: No Limitations - Ebola screening Have you traveled outside of the country in the last 21 days: No (N) Have you had contact with anyone from an Ebola affected area: No Have you been sick,other than usual withdrawal symptoms: No Do you have a fever: No - Review of Systems Constitutional: No Symptoms Reported EENT: reports: No Symptoms Reported Respiratory: reports: No Symptoms reported Cardiac: reports: No Symptoms Reported GI: reports: No Symptoms Reported : reports: No Symptoms Reported Musculoskeletal: reports: Back Pain Integumentary: reports: No Symptoms Reported Neuro: reports: No Symptoms reported Endocrine: reports: No Symptoms Reported Hematology: reports: No Symptoms Reported Psychiatric: reports: Judgement Intact, Orientated x3 Other Systems: Reviewed and Negative Patient History - Patient Medical History Hx Anemia: No Hx Asthma: Yes (albuterol ) Hx Chronic Obstructive Pulmonary Disease (COPD): No Hx Cancer: No Hx Cardiac Disorders: No Hx Congestive Heart Failure: No Hx Hypertension: No Hx Hypercholesterolemia: No Hx Pacemaker: No HX Cerebrovascular Accident: No Hx Seizures: No Hx Dementia: No Hx Diabetes: No Hx Gastrointestinal Disorders: No Hx Liver Disease: No Hx Genitourinary Disorders: No Hx Sexually Transmitted Disorders: No Hx Renal Disease (ESRD): No Hx Thyroid Disease: No Hx Human Immunodeficiency Virus (HIV): No (tested 2 months ago, negative) Hx Hepatitis C: No Hx Depression: Yes Hx Suicide Attempt: No Hx Bipolar Disorder: Yes Hx Schizophrenia: No Other Medical History: anxiety - Patient Surgical History Past Surgical History: Yes Hx Neurologic Surgery: No Hx Cataract Extraction: No Hx Cardiac Surgery: No Hx Lung Surgery: No Hx Breast Surgery: Yes (benign cyst removal left breast in 2005) Hx Breast Biopsy: No Hx Abdominal Surgery: No Hx Appendectomy: No Hx Cholecystectomy: No Hx Genitourinary Surgery: No Hx Section: No Hx Orthopedic Surgery: No Hx Hysterectomy: No Anesthesia Reaction: No - PPD History Date: 02/26/17 Results: 0mm PPD to be Administered?: No - Reproductive History Patient is a Female of Child Bearing Age (11 -55 yrs old): Yes Last Menstrual Period: 08/06/17 Patient : No - Smoking Cessation Smoking history: Current every day smoker Have you smoked in the past 12 months: Yes Aproximately how many cigarettes per day: 20 Cigars Per Day: 0 Hx Chewing Tobacco Use: No Initiated information on smoking cessation: Yes 'Breaking Loose' booklet given: 08/25/17 - Substance & Tx. History Hx Alcohol Use: No Hx Substance Use: No Family Disease History - Family Disease History Family History: Denies Admission Physical Exam [facility] - Vital Signs Vital Signs: Vital Signs - 24 hr 08/25/17 18:38 Temperature 98.7 F Pulse Rate 99 H Respiratory 18 Rate Blood Pressure 132/73 - Physical General Appearance: Yes: Within Normal Limits, Mild Distress HEENTM: Yes: Normal Voice Respiratory: Yes: Lungs Clear, Normal Breath Sounds, No Respiratory Distress Neck: Yes: No masses,lesions,Nodules Breast: Yes: Within Normal Limits Cardiology: Yes: Regular Rhythm, Regular Rate, S1, S2 Abdominal: Yes: Normal Bowel Sounds Genitourinary: Yes: Within Normal Limits Back: Yes: Normal Inspection Musculoskeletal: Yes: full range of Motion Extremities: Yes: Normal Capillary Refill, Normal Inspection, Non-Tender Neurological: Yes: Fully Oriented, Alert, Normal Response Integumentary: Yes: Within Normal Limits, Normal Color Lymphatic: Yes: Within Normal Limits - Diagnostic (1) Benzodiazepine dependence Current Visit: Yes Status: Chronic Cleared for Admission [facility] - Detox or Rehab [facility] Level of Care: Medically Managed Claeared for Rehab Admission: Yes [facility] Breath Alcohol Content Breath Alcohol Content: 0 Urine Drug Screen - Results Drug Screen Negative: Yes Inpatient Rehab Admission - Initial Determination Are CD services needed?: Yes Free of communicable disease: Yes Not in need of hospitalization: Yes - Rehab Admission Criteria Patient is meeting Inpatient Rehab admission criteria:: Yes
[2017-08-25] MEDS ORDERED: MAG HYDROX/AL HYDROX/SIMETH 30 ML UNIT-DOSE CUP PO PRN (19:48)
[2017-08-25] MEDS ORDERED: IBUPROFEN 400 MG TABLET (FP) PO PRN (19:48)
[2017-08-25] MEDS ORDERED: ACETAMINOPHEN 325 MG TABLET (FP) PO PRN (19:48)
[2017-08-25] MEDS ORDERED: MAGNESIUM HYDROX 2400MG/30ML ORAL SUSPENSION 30 ML CUP PO PRN (19:48)
[2017-08-25] MEDS ORDERED: guaiFENesin/D-METHORPHAN HB 10 ML UNIT-DOSE CUPS PO PRN (19:48)
[2017-08-25] MEDS ORDERED: MAGNESIUM CITRATE 300 ML BOTTLE PO PRN (19:48)
[2017-08-25] MEDS ORDERED: MENTHOL/PHENOL 1 EACH UD MM PRN (19:48)
[2017-08-25] MEDS ORDERED: hydrOXYzine PAMOATE 50 MG CAPSULE (FP) PO PRN (19:48)
[2017-08-25] MEDS ORDERED: P-EPHED 60MG/TRIPROLIDI 2.5MG TABLET PO PRN (19:48)
[2017-08-25] MEDS ORDERED: LOPERAMIDE HCL 2 MG CAPSULE PO PRN (19:48)
[2017-08-25] MEDS ORDERED: ALBUTEROL SO4 18 GM HFA INHALER IH PRN (19:50)
[2017-08-25] MEDS ORDERED: MELATONIN 5 MG TABLETS PO PRN (22:00)
[2017-08-25] MEDS ORDERED: GABAPENTIN 400 MG CAPSULE (FP) PO SCH (22:00)
[2017-08-26] MEDS: GABAPENTIN 300 MG CAPSULE (FP) PO SCH ×3 (00:34→15:36)
[2017-08-26] MEDS: NICOTINE POLACRILEX 4 MG GUM BUC PRN ×3 (00:36→15:35)
[2017-08-26] MEDS: THIAMINE HCL 100 MG TABLET (FP) PO SCH ×2 (00:36→21:34)
[2017-08-26] MEDS: NICOTINE 21 MG/24 HOURS TOPICAL PATCH TD SCH (10:44)
[2017-08-26] MEDS: PRENATAL VITAMINS W/ FOLIC ACID TABLET (FP) PO SCH (10:44)
[2017-08-26] MEDS: BUPRENORPHINE/NALOXONE 8 MG/2 MG FILM PACKET SL SCH (10:44)
--- NOTE | 2017-08-26 11:11 | HP ---
Psychiatrist Admission - Data Date of interview: 08/26/17 Admission source: [facility] Identifying data: This is the second admission to [address] [place] [address] for this 31 years old single mother of 2 yo daughter.Patient resides in [place],child lives the patient's mother. Medical History: unremarkable Psychiatric History: Patient reports first contact with psychiatrist in 2014 while being on treatment in [place] outpatient rehabilita[facility] program.Patient addressed anxiety,episodes of depression,insomnia,drug use.She was placed on Seroquel with some response.patient was also on Xanax,Trazodone,Neurontin, Effexor and other medications.She denies psychiatric hospitalizatiosn,no history of suicidal attempts.Patient was under my care while in [facility].Current medications:Neurontin 800 mg po tid and SEroquel 400 mg po hs. Vital Signs: Vital Signs - 24 hr 08/25/17 08/26/17 08/26/17 18:38 01:11 03:30 Temperature 98.7 F 98.6 F Pulse Rate 99 H 112 H Respiratory 18 18 18 Rate Blood Pressure 132/73 122/78 08/26/17 07:03 Temperature 97.4 F L Pulse Rate 98 H Respiratory 18 Rate Blood Pressure 115/76 Allergies/Adverse Reactions: Allergies Allergy/AdvReac Type Severity Reaction Status Date / Time No Known Allergies Allergy Verified 08/25/17 19:17 Date of last physical exam: 08/25/17 Concur with the findings of this exam: Yes - Substance Abuse/Tx History Hx Alcohol Use: Yes (socially) Hx Substance Use: Yes (percoset since 24 yo(Suboxone 16 mg ),Xanax 2 mg since about 4 yo) Substance Use Type: Alcohol, Opiates, Tranquilizers Hx Substance Use Treatment: Yes (completed this program in May 2017) Mental Status Exam - Mental Status Exam Alert and Oriented to: Time, Place, Person Cognitive Function: Grossly Intact Patient Appearance: Unkempt Mood: Sad, Anxious Affect: Mood Congruent, Labile Patient Behavior: Cooperative Speech Pattern: Clear Voice Loudness: Normal Thought Process: Goal Oriented Thought Disorder: Not Present Hallucinations: Denies Suicidal Ideation: Denies Homicidal Ideation: Denies Insight/Judgement: Fair Sleep: Difficulty falling asleep Appetite: Good Muscle strength/Tone: Normal Gait/Station: Normal Psychiatric Findings - Problem List ([place] 1, 2,3) (1) Benzodiazepine dependence Status: Chronic (2) Marijuana dependence Status: Chronic (3) Nicotine dependence Status: Chronic Qualifiers: (4) Opioid dependence on agonist therapy Status: Chronic (5) Substance induced mood disorder Status: Chronic - Initial Treatment Plan Initial Treatment Plan: Continue current medications as per plan.Will monitor progress.
--- NOTE | 2017-08-26 11:53 | EKG ---
Test Reason : Blood Pressure : / mmHG Vent. Rate : 096 BPM Atrial Rate : 096 BPM P-R Int : 164 ms QRS Dur : 092 ms QT Int : 360 ms P-R-T Axes : 065 -01 029 degrees QTc Int : 454 ms NORMAL SINUS RHYTHM INCOMPLETE RIGHT BUNDLE BRANCH BLOCK BORDERLINE ECG WHEN COMPARED WITH ECG OF 10-MAY-2017 16:51, NO SIGNIFICANT CHANGE WAS FOUND Confirmed by MACARIO AMATO, RADHA ([id number]) on 08/26/2017 11:53:16 AM Referred By: Confirmed By:RADHA SORTO MD
[2017-08-26 15:32] LABS: HEMATOCRIT 41.1 % (32.4-45.2); HEMOGLOBIN 14.2 GM/dL (10.7-15.3); MCH 34.6 pg (25.7-33.7); MCHC 34.6 g/dl (32.0-36.0); MEAN CELL VOLUME 100.2 fl (80-96); MEAN PLT VOLUME 8.9 fl (7.5-11.1); PLATELET COUNT 336 K/MM3 (134-434); RDW 13.8 % (11.6-15.6); WHITE BLOOD COUNT 11.8 K/mm3 (4.0-10.0)
[2017-08-26] MEDS: GABAPENTIN 400 MG CAPSULE (FP) PO SCH ×2 (15:35→21:34)
[2017-08-26 15:53] LABS: CHLORIDE 105 mmol/L (98-107); POTASSIUM 3.9 mmol/L (3.5-5.1); SODIUM 137 mmol/L (136-145)
[2017-08-26 16:11] LABS: ALBUMIN 3.4 g/dl (3.4-5.0); ALK PHOS 131 U/L (45-117); ANION GAP 8 (8-16); BILIRUBIN,TOTAL 0.2 mg/dL (0.2-1.0); BLOOD UREA NITROGEN 10 mg/dL (7-18); CALCIUM 8.8 mg/dL (8.5-10.1); CO2 24 mmol/L (21-32); CREATININE 0.6 mg/dL (0.55-1.02); GLUCOSE,RANDOM 115 mg/dL (74-106); SGOT/AST 29 U/L (15-37); SGPT/ALT 36 U/L (12-78)
[2017-08-26 17:09] LABS: URINE APPEARANCE SLCLOUDY; URINE BILIRUBIN NEGATIVE (<2.0 mg/dL); URINE BLOOD NEGATIVE (NEGATIVE); URINE COLOR AMBER; URINE GLUCOSE (UA) NEGATIVE (NEGATIVE); URINE KETONE NEGATIVE (NEGATIVE); URINE LEUK ESTERASE NEGATIVE (NEGATIVE); URINE NITRITE NEGATIVE (NEGATIVE)
[2017-08-26 17:22] LABS: URINE PROTEIN 1+ (NEGATIVE)
[2017-08-26 17:27] LABS: EPI CELLS FEW /HPF (FEW); URINE BACTERIA RARE /hpf (NONE SEEN); URINE MUCUS FEW
[2017-08-26] MEDS: QUEtiapine FUMARATE 400 MG TABLET PO SCH (21:36)
[2017-08-27] MEDS: GABAPENTIN 400 MG CAPSULE (FP) PO SCH ×3 (06:31→21:46)
[2017-08-27] MEDS: NICOTINE POLACRILEX 4 MG GUM BUC PRN ×3 (06:31→12:39)
[2017-08-27] MEDS: PRENATAL VITAMINS W/ FOLIC ACID TABLET (FP) PO SCH (09:43)
[2017-08-27] MEDS: BUPRENORPHINE/NALOXONE 8 MG/2 MG FILM PACKET SL SCH (09:44)
[2017-08-27] MEDS: NICOTINE 21 MG/24 HOURS TOPICAL PATCH TD SCH (09:44)
[2017-08-27] MEDS ORDERED: COLLOIDAL OATMEAL 1 BAR EACH TP PRN (13:44)
--- NOTE | 2017-08-27 13:44 | PN ---
S Progress Note Note: c/o of sore throat. Vital Signs Temperature 98.0 F 08/27/17 07:03 Pulse Rate 98 H 08/27/17 07:03 Respiratory Rate 18 08/27/17 07:03 Blood Pressure 105/72 08/27/17 07:03 O2 Sat by Pulse Oximetry (%) Laboratory Last Values WBC 11.8 K/mm3 (4.0-10.0) H D 08/26/17 08:30 RBC 4.10 M/mm3 (3.60-5.2) 08/26/17 08:30 Hgb 14.2 GM/dL (10.7-15.3) 08/26/17 08:30 Hct 41.1 % (32.4-45.2) 08/26/17 08:30 MCV 100.2 fl (80-96) H 08/26/17 08:30 MCH 34.6 pg (25.7-33.7) H 08/26/17 08:30 MCHC 34.6 g/dl (32.0-36.0) 08/26/17 08:30 RDW 13.8 % (11.6-15.6) 08/26/17 08:30 Plt Count 336 K/MM3 (134-434) 08/26/17 08:30 MPV 8.9 fl (7.5-11.1) 08/26/17 08:30 Sodium 137 mmol/L (136-145) 08/26/17 08:30 Potassium 3.9 mmol/L (3.5-5.1) 08/26/17 08:30 Chloride 105 mmol/L (98-107) 08/26/17 08:30 Carbon Dioxide 24 mmol/L (21-32) 08/26/17 08:30 Anion Gap 8 (8-16) 08/26/17 08:30 BUN 10 mg/dL (7-18) 08/26/17 08:30 Creatinine 0.6 mg/dL (0.55-1.02) 08/26/17 08:30 Creat Clearance w eGFR > 60 (>60) 08/26/17 08:30 Random Glucose 115 mg/dL (74-106) H 08/26/17 08:30 Calcium 8.8 mg/dL (8.5-10.1) 08/26/17 08:30 Total Bilirubin 0.2 mg/dL (0.2-1.0) D 08/26/17 08:30 AST 29 U/L (15-37) 08/26/17 08:30 ALT 36 U/L (12-78) 08/26/17 08:30 Alkaline Phosphatase 131 U/L (45-117) H 08/26/17 08:30 Total Protein 7.0 g/dl (6.4-8.2) 08/26/17 08:30 Albumin 3.4 g/dl (3.4-5.0) 08/26/17 08:30 Urine Color Amanda 08/26/17 14:00 Urine Appearance Slcloudy 08/26/17 14:00 Urine pH 7.0 (5.0-8.0) 08/26/17 14:00 Ur Specific [place] 1.028 (1.001-1.035) 08/26/17 14:00 Urine Protein 1+ (NEGATIVE) H 08/26/17 14:00 Urine Glucose (UA) Negative (NEGATIVE) 08/26/17 14:00 Urine Ketones Negative (NEGATIVE) 08/26/17 14:00 Urine Blood Negative (NEGATIVE) 08/26/17 14:00 Urine Nitrite Negative (NEGATIVE) 08/26/17 14:00 Urine Bilirubin Negative (<2.0 mg/dL) 08/26/17 14:00 Urine Urobilinogen 2.0 mg/dL (0.2-1.0) H 08/26/17 14:00 Ur Leukocyte Esterase Negative (NEGATIVE) 08/26/17 14:00 Urine WBC (Auto) 4 /hpf (3-5) 08/26/17 14:00 Urine RBC (Auto) 2 /hpf (0-3) 08/26/17 14:00 Ur Epithelial Cells Few /HPF (FEW) 08/26/17 14:00 Urine Bacteria Rare /hpf (NONE SEEN) 08/26/17 14:00 Urine Mucus Few 08/26/17 14:00 RPR Titer Nonreactive (NONREACTIVE) 08/26/17 08:30 Throat culture peridex wash tylenol PRN continue to monitor
[2017-08-27] MEDS: CHLORHEXIDINE GLUCONATE 0.12% 15ML CUP MM SCH ×2 (14:46→21:47)
[2017-08-27] MEDS: MINERAL OIL/PETROLAT/WATER TOPICAL CREAM 113 GM JAR TP SCH (14:47)
[2017-08-27] MEDS ORDERED: PT OWN MED DRAWER 7, Y5N ONE (19:51)
[2017-08-27] MEDS: QUEtiapine FUMARATE 400 MG TABLET PO SCH (21:46)
[2017-08-27] MEDS: THIAMINE HCL 100 MG TABLET (FP) PO SCH (21:47)
[2017-08-28] MEDS: NICOTINE POLACRILEX 4 MG GUM BUC PRN ×4 (06:21→21:20)
[2017-08-28] MEDS: GABAPENTIN 400 MG CAPSULE (FP) PO SCH ×3 (06:21→21:18)
[2017-08-28] MEDS: CHLORHEXIDINE GLUCONATE 0.12% 15ML CUP MM SCH ×2 (10:20→21:19)
[2017-08-28] MEDS: PRENATAL VITAMINS W/ FOLIC ACID TABLET (FP) PO SCH (10:20)
[2017-08-28] MEDS: MINERAL OIL/PETROLAT/WATER TOPICAL CREAM 113 GM JAR TP SCH (10:21)
[2017-08-28] MEDS: NICOTINE 21 MG/24 HOURS TOPICAL PATCH TD SCH (10:21)
[2017-08-28] MEDS: BUPRENORPHINE/NALOXONE 8 MG/2 MG FILM PACKET SL SCH (10:21)
[2017-08-28] MEDS ORDERED: PT OWN MED DRAWER 7, Y5N ONE (10:26)
--- NOTE | 2017-08-28 13:53 | PN ---
[facility] Progress Note Note: PATIENT FOR DISCHARGE ON Thursday08/31/17. STATES SHE WAS TREATED WITH SUBOXONE 12MG DAILY NOT 16MG AT [facility] INSURANCE WOULD ONLY COVER 12MG STRIPS. PATIENT STATES SHE WOULD LIKE TO RESUME THIS DOSE UPON DISCHARGE. SUBOXONE 12/3MG ORDERED UPON DISCHARGE #7 STRIPS AND NO REFILL. HAS APPT WITH YOLANDA ON 09/03/17.
[2017-08-28] MEDS: QUEtiapine FUMARATE 400 MG TABLET PO SCH (21:19)
[2017-08-28] MEDS: THIAMINE HCL 100 MG TABLET (FP) PO SCH (21:55)
[2017-08-29] MEDS: GABAPENTIN 400 MG CAPSULE (FP) PO SCH ×3 (06:32→21:45)
[2017-08-29] MEDS: NICOTINE POLACRILEX 4 MG GUM BUC PRN ×4 (06:33→17:55)
[2017-08-29] MEDS ORDERED: PT OWN MED DRAWER 7, Y5N ONE (08:44)
[2017-08-29] MEDS: PRENATAL VITAMINS W/ FOLIC ACID TABLET (FP) PO SCH (10:20)
[2017-08-29] MEDS: BUPRENORPHINE/NALOXONE 8 MG/2 MG FILM PACKET SL SCH (10:20)
[2017-08-29] MEDS: NICOTINE 21 MG/24 HOURS TOPICAL PATCH TD SCH (10:20)
[2017-08-29] MEDS: CHLORHEXIDINE GLUCONATE 0.12% 15ML CUP MM SCH ×2 (10:22→21:45)
[2017-08-29] MEDS: MINERAL OIL/PETROLAT/WATER TOPICAL CREAM 113 GM JAR TP SCH (10:22)
[2017-08-29] MEDS: QUEtiapine FUMARATE 400 MG TABLET PO SCH (21:44)
[2017-08-29] MEDS: THIAMINE HCL 100 MG TABLET (FP) PO SCH (21:45)
[2017-08-30] MEDS: GABAPENTIN 400 MG CAPSULE (FP) PO SCH ×3 (06:38→21:51)
[2017-08-30] MEDS: NICOTINE POLACRILEX 4 MG GUM BUC PRN ×4 (06:38→17:42)
[2017-08-30] MEDS: PRENATAL VITAMINS W/ FOLIC ACID TABLET (FP) PO SCH (09:59)
[2017-08-30] MEDS: CHLORHEXIDINE GLUCONATE 0.12% 15ML CUP MM SCH ×2 (10:00→21:52)
[2017-08-30] MEDS: NICOTINE 21 MG/24 HOURS TOPICAL PATCH TD SCH (10:00)
[2017-08-30] MEDS: BUPRENORPHINE/NALOXONE 8 MG/2 MG FILM PACKET SL SCH (10:00)
[2017-08-30] MEDS: MINERAL OIL/PETROLAT/WATER TOPICAL CREAM 113 GM JAR TP SCH (10:01)
--- NOTE | 2017-08-30 10:38 | PN ---
S Progress Note Note: throat c/s showed beta hemolytic strep f,will start on amoxicillin 500 mgs po now then tid for 7 days,fluid,e pres to patient pharmacy for 7 days Vital Signs Temperature 98.3 F 08/30/17 07:21 Pulse Rate 93 H 08/30/17 07:21 Respiratory Rate 18 08/30/17 07:21 Blood Pressure 94/60 08/30/17 07:21 O2 Sat by Pulse Oximetry (%) follow up with pmd
[2017-08-30] MEDS: AMOXICILLIN 500 MG CAPSULE (FP) PO SCH ×2 (13:47→21:51)
[2017-08-30] MEDS ORDERED: PT OWN MED DRAWER 7, Y5N ONE (17:10)
[2017-08-30] MEDS: QUEtiapine FUMARATE 400 MG TABLET PO SCH (21:51)
[2017-08-30] MEDS: THIAMINE HCL 100 MG TABLET (FP) PO SCH (21:51)
[2017-08-31] MEDS ORDERED: BUPRENORPHINE/NALOXONE 8 MG/2 MG FILM PACKET SL ONE (06:00)
[2017-08-31] MEDS: GABAPENTIN 400 MG CAPSULE (FP) PO SCH (06:05)
[2017-08-31] MEDS: AMOXICILLIN 500 MG CAPSULE (FP) PO SCH (06:05)
[2017-08-31] MEDS: NICOTINE POLACRILEX 4 MG GUM BUC PRN (06:42)
[2017-08-31 07:05] VITALS: BP 115/72; PULSE 87; TEMP 98.5
== END 2017-08-31 06:55 | disposition home or self-care (01) | DRG 772 ==
LOC: YASAS 15:33 → Y3E 19:53
PROVIDERS: ADMIT Psychiatry & Neurology Psychiatry; ATTEND Psychiatry & Neurology Psychiatry
PROC: HZ42ZZZ Group Counseling for Substance Abuse Treatment, Cognitive-Behavioral (ICD-10-PCS; principal; 2017-08-25)
DX: F13.20 Sedative, hypnotic or anxiolytic dependence, uncomplicated (principal); F11.20 Opioid dependence, uncomplicated; F12.20 Cannabis dependence, uncomplicated; F17.210 Nicotine dependence, cigarettes, uncomplicated; F33.9 Major depressive disorder, recurrent, unspecified; F19.24 Other psychoactive substance dependence with psychoactive substance-induced mood disorder; J02.9 Acute pharyngitis, unspecified
CPT/HCPCS: 36415; 80053; 81003; 81015; 85027; 86593; 87070; 93005; 93010

== ENCOUNTER 2017-10-23 12:41 | Inpatient (IN) | payer OTHER ==
[2017-10-23] MEDS ORDERED: MAGNESIUM HYDROX 2400MG/30ML ORAL SUSPENSION 30 ML CUP PO PRN (13:56)
[2017-10-23] MEDS ORDERED: MAGNESIUM CITRATE 300 ML BOTTLE PO PRN (13:56)
[2017-10-23] MEDS ORDERED: P-EPHED 60MG/TRIPROLIDI 2.5MG TABLET PO PRN (13:56)
[2017-10-23] MEDS ORDERED: MAG HYDROX/AL HYDROX/SIMETH 30 ML UNIT-DOSE CUP PO PRN (13:56)
[2017-10-23] MEDS ORDERED: ACETAMINOPHEN 325 MG TABLET (FP) PO PRN (13:56)
[2017-10-23] MEDS ORDERED: MENTHOL/PHENOL 1 EACH UD MM PRN (13:56)
[2017-10-23] MEDS ORDERED: LOPERAMIDE HCL 2 MG CAPSULE PO PRN (13:56)
[2017-10-23] MEDS ORDERED: guaiFENesin/D-METHORPHAN HB 10 ML UNIT-DOSE CUPS PO PRN (13:56)
--- NOTE | 2017-10-23 14:16 | HP ---
Psychiatrist Admission - Data Date of interview: 10/23/17 Admission source: [address] [place] [address] Identifying data: THIS IS THE THIRD ADMISSION TO [address] [place] [id number] FOR THIS 31 YO SINGLE FEMALE MOTHER OF 3 YO GIRL, UNEMPLOYED,UNDOMICILED,SUPPORTED BY PA. Medical History: Unremarkable. Psychiatric History: Patient reports first contact with psychiatrist in 2014 while being in rehabilitation treatment at [facility].She addressed anxiety,depression,insomnia,drug use.Patient was placed on Seroquel 100 mg po hs with good response.Later on she was on Xanax,Neurontin, Trazodoen,Effexor on and off.No history of psychiatric hospitalizations,no suicidal attempts history.Patient was under my care before admission.Current medicationsLSeroquel 400 mg po hs,Neurontin 800 mg po tid. Allergies/Adverse Reactions: Allergies Allergy/AdvReac Type Severity Reaction Status Date / Time No Known Allergies Allergy Verified 10/20/17 18:01 Date of last physical exam: 10/20/17 Concur with the findings of this exam: Yes - Substance Abuse/Tx History Hx Alcohol Use: Yes (socially) Hx Substance Use: Yes (Percoset since 24 yo(currently is on Suboxone),Xanax 2 mg daily since 2015 ) Substance Use Type: Alcohol, Cocaine, Heroin, Marijuana, Opiates, Tranquilizers Hx Substance Use Treatment: Yes (completed this program in May,August 2017) Mental Status Exam - Mental Status Exam Alert and Oriented to: Time, Place, Person Cognitive Function: Grossly Intact Patient Appearance: Unkempt Mood: Sad Affect: Mood Congruent, Labile Patient Behavior: Cooperative Speech Pattern: Clear Voice Loudness: Normal Thought Process: Goal Oriented Thought Disorder: Not Present Hallucinations: Denies Suicidal Ideation: Denies Homicidal Ideation: Denies Insight/Judgement: Fair Sleep: Difficulty falling asleep Appetite: Good Muscle strength/Tone: Normal Gait/Station: Normal Psychiatric Findings - Problem List ([place] 1, 2,3) (1) 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
[2017-10-23] MEDS: NICOTINE POLACRILEX 4 MG GUM BUC PRN ×2 (15:47→21:09)
[2017-10-23] MEDS: GABAPENTIN 400 MG CAPSULE (FP) PO SCH ×2 (15:47→21:08)
[2017-10-23] MEDS: QUEtiapine FUMARATE 400 MG TABLET PO SCH (21:08)
[2017-10-23] MEDS: THIAMINE HCL 100 MG TABLET (FP) PO SCH (21:08)
[2017-10-23] MEDS ORDERED: MELATONIN 5 MG TABLETS PO PRN (22:00)
[2017-10-24] MEDS: GABAPENTIN 400 MG CAPSULE (FP) PO SCH ×3 (06:25→21:10)
[2017-10-24] MEDS: NICOTINE POLACRILEX 4 MG GUM BUC PRN ×4 (06:25→21:11)
[2017-10-24] MEDS ORDERED: PT OWN MED DRAWER 7, Y5N ONE (07:15)
[2017-10-24] MEDS: PRENATAL VITAMINS W/ FOLIC ACID TABLET (FP) PO SCH (09:43)
[2017-10-24] MEDS: NICOTINE 21 MG/24 HOURS TOPICAL PATCH TD SCH (09:43)
[2017-10-24] MEDS: BUPRENORPHINE/NALOXONE 8 MG/2 MG FILM PACKET SL SCH (09:45)
[2017-10-24] MEDS: THIAMINE HCL 100 MG TABLET (FP) PO SCH (21:10)
[2017-10-24] MEDS: QUEtiapine FUMARATE 400 MG TABLET PO SCH (21:10)
[2017-10-25] MEDS: GABAPENTIN 400 MG CAPSULE (FP) PO SCH ×3 (06:29→21:15)
[2017-10-25] MEDS: NICOTINE POLACRILEX 4 MG GUM BUC PRN ×4 (06:31→17:40)
[2017-10-25] MEDS: BUPRENORPHINE/NALOXONE 8 MG/2 MG FILM PACKET SL SCH (10:00)
[2017-10-25] MEDS: PRENATAL VITAMINS W/ FOLIC ACID TABLET (FP) PO SCH (10:00)
[2017-10-25] MEDS: NICOTINE 21 MG/24 HOURS TOPICAL PATCH TD SCH (10:00)
[2017-10-25] MEDS: QUEtiapine FUMARATE 400 MG TABLET PO SCH (21:15)
[2017-10-25] MEDS: THIAMINE HCL 100 MG TABLET (FP) PO SCH (21:16)
[2017-10-26] MEDS: GABAPENTIN 400 MG CAPSULE (FP) PO SCH ×3 (06:25→21:13)
[2017-10-26] MEDS: NICOTINE POLACRILEX 4 MG GUM BUC PRN ×3 (06:25→16:37)
[2017-10-26] MEDS: PRENATAL VITAMINS W/ FOLIC ACID TABLET (FP) PO SCH (09:55)
[2017-10-26] MEDS: BUPRENORPHINE/NALOXONE 8 MG/2 MG FILM PACKET SL SCH (09:55)
[2017-10-26] MEDS: NICOTINE 21 MG/24 HOURS TOPICAL PATCH TD SCH (09:55)
[2017-10-26] MEDS ORDERED: COLLOIDAL OATMEAL 1 BAR EACH TP PRN (14:04)
[2017-10-26] MEDS: QUEtiapine FUMARATE 400 MG TABLET PO SCH (21:13)
[2017-10-26] MEDS: MINERAL OIL/PETROLAT/WATER TOPICAL CREAM 113 GM JAR TP SCH (21:14)
[2017-10-26] MEDS: THIAMINE HCL 100 MG TABLET (FP) PO SCH (21:14)
[2017-10-27] MEDS: GABAPENTIN 400 MG CAPSULE (FP) PO SCH ×3 (06:22→21:06)
[2017-10-27] MEDS: NICOTINE POLACRILEX 4 MG GUM BUC PRN ×4 (06:22→18:37)
[2017-10-27] MEDS ORDERED: PT OWN MED DRAWER 7, Y5N ONE ×2 (09:05→15:14)
[2017-10-27] MEDS ORDERED: ONDANSETRON *ODT* 4 MG TABLET SL PRN (09:11)
[2017-10-27] MEDS: PRENATAL VITAMINS W/ FOLIC ACID TABLET (FP) PO SCH (09:37)
[2017-10-27] MEDS: MINERAL OIL/PETROLAT/WATER TOPICAL CREAM 113 GM JAR TP SCH ×2 (09:38→21:07)
[2017-10-27] MEDS: NICOTINE 21 MG/24 HOURS TOPICAL PATCH TD SCH (09:38)
[2017-10-27] MEDS: BUPRENORPHINE/NALOXONE 8 MG/2 MG FILM PACKET SL SCH (09:38)
[2017-10-27] MEDS: IBUPROFEN 400 MG TABLET (FP) PO PRN (11:28)
[2017-10-27] MEDS: THIAMINE HCL 100 MG TABLET (FP) PO SCH (21:06)
[2017-10-27] MEDS: QUEtiapine FUMARATE 400 MG TABLET PO SCH (21:07)
[2017-10-28] MEDS: GABAPENTIN 400 MG CAPSULE (FP) PO SCH ×3 (06:32→21:14)
[2017-10-28] MEDS: NICOTINE POLACRILEX 4 MG GUM BUC PRN ×4 (06:33→16:11)
[2017-10-28] MEDS: PRENATAL VITAMINS W/ FOLIC ACID TABLET (FP) PO SCH (09:22)
[2017-10-28] MEDS: MECLIZINE HCL 25 MG TABLET (FP) PO PRN (09:22)
[2017-10-28] MEDS: NICOTINE 21 MG/24 HOURS TOPICAL PATCH TD SCH (09:22)
[2017-10-28] MEDS ORDERED: PT OWN MED DRAWER 7, Y5N ONE (09:22)
[2017-10-28] MEDS: BUPRENORPHINE/NALOXONE 8 MG/2 MG FILM PACKET SL SCH (09:23)
[2017-10-28] MEDS: MINERAL OIL/PETROLAT/WATER TOPICAL CREAM 113 GM JAR TP SCH ×2 (09:23→21:14)
[2017-10-28] MEDS: THIAMINE HCL 100 MG TABLET (FP) PO SCH (21:13)
[2017-10-28] MEDS: QUEtiapine FUMARATE 400 MG TABLET PO SCH (21:14)
[2017-10-29] MEDS: GABAPENTIN 400 MG CAPSULE (FP) PO SCH ×3 (06:23→21:07)
[2017-10-29] MEDS: NICOTINE POLACRILEX 4 MG GUM BUC PRN ×5 (06:24→21:09)
[2017-10-29] MEDS: NICOTINE 21 MG/24 HOURS TOPICAL PATCH TD SCH (09:37)
[2017-10-29] MEDS: PRENATAL VITAMINS W/ FOLIC ACID TABLET (FP) PO SCH (09:37)
[2017-10-29] MEDS: MINERAL OIL/PETROLAT/WATER TOPICAL CREAM 113 GM JAR TP SCH ×2 (09:38→21:07)
[2017-10-29] MEDS: BUPRENORPHINE/NALOXONE 8 MG/2 MG FILM PACKET SL SCH (09:38)
--- NOTE | 2017-10-29 10:29 | PN ---
[facility] Progress Note Note: called by nurse,stated that patient has unwitness fall at 21.30 approximate time last night stated hit head on the siderail anf fell down on her butttok vital sign t97.9,p74,r18,t97.9 heent normal no obvious injury claimed she hit her hear right occipital area alert,oriented x 3 no neck pain ambulation without difficulty impression head injury unwitness fall vertigo history treatment initiate fall protocol 1 patient refused to go to er for evaluation post head injury after a fall,signed release form, fall precaution close monitoring
[2017-10-29] MEDS: IBUPROFEN 400 MG TABLET (FP) PO PRN (16:11)
[2017-10-29] MEDS: MECLIZINE HCL 25 MG TABLET (FP) PO PRN (16:14)
[2017-10-29] MEDS: THIAMINE HCL 100 MG TABLET (FP) PO SCH (21:07)
[2017-10-29] MEDS: QUEtiapine FUMARATE 400 MG TABLET PO SCH (21:07)
[2017-10-30] MEDS: GABAPENTIN 400 MG CAPSULE (FP) PO SCH ×3 (06:31→21:07)
[2017-10-30] MEDS ORDERED: PT OWN MED DRAWER 7, Y5N ONE ×2 (08:18→14:27)
[2017-10-30] MEDS: PRENATAL VITAMINS W/ FOLIC ACID TABLET (FP) PO SCH (10:20)
[2017-10-30] MEDS: NICOTINE 21 MG/24 HOURS TOPICAL PATCH TD SCH (10:20)
[2017-10-30] MEDS: MINERAL OIL/PETROLAT/WATER TOPICAL CREAM 113 GM JAR TP SCH ×2 (10:22→21:08)
[2017-10-30] MEDS ORDERED: BUPRENORPHINE/NALOXONE 8 MG/2 MG FILM PACKET SL ONE (11:28)
--- NOTE | 2017-10-30 14:00 | PN ---
[facility] Progress Note Note: PATIENT FOR DISCHARGE ON THURSDAY TO A [facility] IN [facility] COUNSELOR FROM FACILITY TOLD HER SHE NEEDS ONE MONTH OF SUBOXONE BECAUSE OF PENDING INSURANCE CHANGES. COUNSELOR FROM [facility] CALLED FACILITY AND WAS TOLD PATIENT NEEDS ONE WEEK OF SUBOXONE PRESCRIPTION, NOT ONE MONTH. PATIENT INFORMED THAT SHE WILL BE DISCHARGED WITH ONE WEEK OF SUBOXONE. PRESCRIPTION SENT TO [facility]: SUBOXONE 8MG/2MG BID #14 NO REFILLS.
[2017-10-30] MEDS: NICOTINE POLACRILEX 4 MG GUM BUC PRN ×3 (14:28→21:08)
[2017-10-30] MEDS: IBUPROFEN 400 MG TABLET (FP) PO PRN (18:51)
[2017-10-30] MEDS: THIAMINE HCL 100 MG TABLET (FP) PO SCH (21:07)
[2017-10-30] MEDS: QUEtiapine FUMARATE 400 MG TABLET PO SCH (21:07)
[2017-10-31] MEDS: GABAPENTIN 400 MG CAPSULE (FP) PO SCH ×3 (06:33→21:01)
[2017-10-31] MEDS: NICOTINE POLACRILEX 4 MG GUM BUC PRN ×4 (06:34→23:46)
[2017-10-31] MEDS ORDERED: PT OWN MED DRAWER 7, Y5N ONE ×2 (08:45→19:19)
[2017-10-31] MEDS: BUPRENORPHINE/NALOXONE 8 MG/2 MG FILM PACKET SL SCH (09:24)
[2017-10-31] MEDS: PRENATAL VITAMINS W/ FOLIC ACID TABLET (FP) PO SCH (09:24)
[2017-10-31] MEDS: NICOTINE 21 MG/24 HOURS TOPICAL PATCH TD SCH (09:24)
[2017-10-31] MEDS: MINERAL OIL/PETROLAT/WATER TOPICAL CREAM 113 GM JAR TP SCH ×2 (09:25→21:03)
[2017-10-31] MEDS: IBUPROFEN 400 MG TABLET (FP) PO PRN (21:01)
[2017-10-31] MEDS: QUEtiapine FUMARATE 400 MG TABLET PO SCH (21:01)
[2017-10-31] MEDS: THIAMINE HCL 100 MG TABLET (FP) PO SCH (21:03)
[2017-11-01] MEDS: GABAPENTIN 400 MG CAPSULE (FP) PO SCH ×3 (06:28→21:00)
[2017-11-01] MEDS: NICOTINE POLACRILEX 4 MG GUM BUC PRN ×4 (06:29→19:36)
[2017-11-01 06:51] VITALS: TEMP 97.8
[2017-11-01] MEDS: PRENATAL VITAMINS W/ FOLIC ACID TABLET (FP) PO SCH (09:23)
[2017-11-01] MEDS: NICOTINE 21 MG/24 HOURS TOPICAL PATCH TD SCH (09:24)
[2017-11-01] MEDS: BUPRENORPHINE/NALOXONE 8 MG/2 MG FILM PACKET SL SCH (09:24)
[2017-11-01] MEDS: MINERAL OIL/PETROLAT/WATER TOPICAL CREAM 113 GM JAR TP SCH ×2 (09:25→21:02)
--- NOTE | 2017-11-01 10:39 | PN ---
[facility] Progress Note Note: Pt's suboxone dose for tomorrow re-timed s/p pt's early discharge
[2017-11-01] MEDS: IBUPROFEN 400 MG TABLET (FP) PO PRN (13:23)
[2017-11-01] MEDS: QUEtiapine FUMARATE 400 MG TABLET PO SCH (21:00)
[2017-11-01] MEDS: THIAMINE HCL 100 MG TABLET (FP) PO SCH (21:00)
[2017-11-02] MEDS: GABAPENTIN 400 MG CAPSULE (FP) PO SCH (06:25)
[2017-11-02] MEDS ORDERED: BUPRENORPHINE/NALOXONE 8 MG/2 MG FILM PACKET SL ONE (07:00)
[2017-11-02 07:15] VITALS: BP 100/66; PULSE 80
--- NOTE | 2017-11-02 11:18 | PN ---
[facility] Progress Note Note: Patient completed this program today(early discharge).She will continue to address her issues at [facility] rehab program.Patient will continue current medications as per plan,scripts for 30 days provided.patient is stable for discharge today.
== END 2017-11-02 06:52 | disposition home or self-care (01) | DRG 772 ==
LOC: YASAS 12:41 → Y3E 12:42
PROVIDERS: ADMIT Psychiatry & Neurology Psychiatry; ATTEND Psychiatry & Neurology Psychiatry
PROC: HZ42ZZZ Group Counseling for Substance Abuse Treatment, Cognitive-Behavioral (ICD-10-PCS; principal; 2017-10-23)
DX: F10.20 Alcohol dependence, uncomplicated (principal); F11.20 Opioid dependence, uncomplicated; F13.20 Sedative, hypnotic or anxiolytic dependence, uncomplicated; F12.20 Cannabis dependence, uncomplicated; F15.10 Other stimulant abuse, uncomplicated; F31.9 Bipolar disorder, unspecified; S09.90XA Unspecified injury of head, initial encounter; X58.XXXA Exposure to other specified factors, initial encounter; Y93.9 Activity, unspecified; Y92.230 Patient room in hospital as the place of occurrence of the external cause
CPT/HCPCS: Q0162

== ENCOUNTER 2022-08-15 12:47 | Emergency (ER) | payer OTHER ==
[2022-08-15 13:04] VITALS: BP 109/63; PULSE 80; RESP 18; TEMP 98.1; BMI 27.1
[2022-08-15] MEDS ORDERED: methaDONE HCL 10 MG TABLET PO ONE (13:25)
[2022-08-15] MEDS ORDERED: methaDONE HCL 10 MG TABLET ONE (13:35)
[2022-08-15] MEDS ORDERED: methaDONE HCL 40 MG DISPERSABLE TABLET ONE (13:35)
== END 2022-08-15 13:40 | disposition home or self-care (01) ==
LOC: JER 12:47 → JERFT 12:47 → JER 13:40
DX: O99.323 Drug use complicating pregnancy, third trimester (principal); F11.90 Opioid use, unspecified, uncomplicated; Z3A.34 34 weeks gestation of pregnancy
CPT/HCPCS: 99283-25

== ENCOUNTER 2022-08-17 15:07 | Emergency (ER) | payer OTHER ==
[2022-08-17 15:23] VITALS: BP 106/68; PULSE 88; RESP 18; TEMP 97.6; BMI 27.1
[2022-08-17] MEDS ORDERED: methaDONE HCL 10 MG TABLET PO ONE (16:07)
[2022-08-17] MEDS ORDERED: methaDONE HCL 10 MG TABLET ONE (16:13)
== END 2022-08-17 17:57 | disposition home or self-care (01) ==
LOC: JERFT 15:07 → JER 15:07 → JERFT 17:57
DX: F11.20 Opioid dependence, uncomplicated (principal)
CPT/HCPCS: 99283-25

== ENCOUNTER 2022-09-09 12:48 | Emergency (ER) | payer OTHER ==
[2022-09-09 12:58] VITALS: BP 108/67; PULSE 91; RESP 18; TEMP 97.7; BMI 23.1
[2022-09-09] MEDS ORDERED: methaDONE HCL 10 MG TABLET PO ONE (13:13)
[2022-09-09] MEDS ORDERED: methaDONE HCL 10 MG TABLET ONE (13:23)
[2022-09-09] MEDS ORDERED: methaDONE HCL 40 MG DISPERSABLE TABLET ONE (13:23)
== END 2022-09-09 13:45 | disposition home or self-care (01) ==
LOC: JER 12:48 → JERFT 12:48
DX: F11.20 Opioid dependence, uncomplicated (principal)
CPT/HCPCS: 99283-25

== ENCOUNTER 2022-10-07 12:18 | Emergency (ER) | payer OTHER ==
[2022-10-07 12:28] VITALS: BP 117/70; PULSE 79; RESP 18; TEMP 97.8; BMI 25.7
[2022-10-07] MEDS ORDERED: methaDONE HCL 10 MG TABLET PO ONE (12:33)
[2022-10-07] MEDS ORDERED: methaDONE HCL 40 MG DISPERSABLE TABLET ONE (12:47)
== END 2022-10-07 13:13 | disposition home or self-care (01) ==
LOC: JER 12:18
DX: Z76.0 Encounter for issue of repeat prescription (principal)
CPT/HCPCS: 99281-25

== ENCOUNTER 2022-11-12 11:46 | Emergency (ER) | payer OTHER ==
[2022-11-12 12:04] VITALS: BP 106/69; PULSE 74; RESP 18; TEMP 98.5; BMI 25.0
[2022-11-12] MEDS ORDERED: methaDONE HCL 10 MG TABLET (FOR DETOX USE ONLY) PO ONE (13:32)
[2022-11-12] MEDS ORDERED: methaDONE HCL 40 MG DISPERSABLE TABLET ONE (13:35)
[2022-11-12] MEDS ORDERED: methaDONE HCL 10 MG TABLET ONE (13:35)
== END 2022-11-12 14:49 | disposition home or self-care (01) ==
LOC: JER 11:46 → JERFT 11:46
DX: Z76.0 Encounter for issue of repeat prescription (principal)
CPT/HCPCS: 84703; 99283-25

== ENCOUNTER 2023-04-23 16:49 | Emergency (ER) | payer OTHER ==
[2023-04-23 17:03] VITALS: BP 130/75; PULSE 108; RESP 18; TEMP 98; BMI 30.7
[2023-04-23] MEDS ORDERED: methaDONE HCL 10 MG TABLET PO ONE (18:31)
[2023-04-23] MEDS ORDERED: methaDONE HCL 10 MG TABLET ONE (18:58)
== END 2023-04-23 19:09 | disposition home or self-care (01) ==
LOC: JER 16:49
DX: F11.20 Opioid dependence, uncomplicated (principal)
CPT/HCPCS: 99283-25

== ENCOUNTER 2023-04-25 13:12 | Emergency (ER) | payer OTHER ==
[2023-04-25 13:24] VITALS: BP 115/72; PULSE 85; RESP 18; TEMP 98; BMI 24.9
[2023-04-25] MEDS ORDERED: methaDONE HCL 10 MG TABLET PO ONE (13:53)
[2023-04-25] MEDS ORDERED: methaDONE HCL 10 MG TABLET ONE (14:36)
[2023-04-25 14:55] LABS: HCG,QUALITATIVE URINE Negative
[2023-04-25 14:57] LABS: EPI CELLS >36 /uL (0-25.1); HYALINE CASTS 2 /uL (0-3.1); PH,URINE 6.5 (5.0-8.0); URINE APPEARANCE CLEAR; URINE BACTERIA 1152 /uL (0-1359); URINE BILIRUBIN NEGATIVE (NEGATIVE); URINE COLOR YELLOW; URINE GLUCOSE (UA) NEGATIVE (NEGATIVE); URINE KETONE TRACE (NEGATIVE); URINE LEUK ESTERASE 1+ (NEGATIVE); URINE NITRITE NEGATIVE (NEGATIVE); URINE PROTEIN TRACE (NEGATIVE); URINE RBC 13 /uL (0-23.9); URINE WBC 70 /uL (0-25.8)
== END 2023-04-25 15:06 | disposition home or self-care (01) ==
LOC: JER 13:12
DX: O99.321 Drug use complicating pregnancy, first trimester (principal); F11.90 Opioid use, unspecified, uncomplicated; Z3A.09 9 weeks gestation of pregnancy
CPT/HCPCS: 81003; 84703; 87077; 87086; 99283-25

== ENCOUNTER 2023-11-26 21:24 | Observation (INO) | payer OTHER ==
[2023-11-26 22:58] LABS: URINE APPEARANCE CLEAR; URINE BILIRUBIN NEGATIVE (NEGATIVE); URINE COLOR YELLOW; URINE GLUCOSE (UA) NEGATIVE (NEGATIVE); URINE KETONE NEGATIVE (NEGATIVE); URINE LEUK ESTERASE NEGATIVE (NEGATIVE); URINE NITRITE NEGATIVE (NEGATIVE); URINE PROTEIN NEGATIVE (NEGATIVE); URINE UROBILINOGEN 0.2 mg/dL (0.2-1.0)
[2023-11-26 23:04] LABS: COCAINE, UR NEGATIVE (NEGATIVE); OPIATES, URI NEGATIVE (NEGATIVE); URINE BARBITURATES NEGATIVE (NEGATIVE); URINE BENZODIAZEPINES NEGATIVE (NEGATIVE)
[2023-11-26 23:05] LABS: PHENCYCLIDINE,URINE NEGATIVE (NEGATIVE)
[2023-11-26 23:28] LABS: BASO % 0.3 % (0-2.0); EOS % 1.3 % (0-4.5); HEMATOCRIT 38.7 % (32.4-45.2); HEMOGLOBIN 13.1 GM/dL (10.7-15.3); LYMPH % 16.4 % (8-40); MCH 32.8 pg (25.7-33.7); MCHC 33.9 g/dl (32.0-36.0); MEAN CELL VOLUME 96.9 fl (80-96); MEAN PLT VOLUME 7.6 fl (7.5-11.1); MONO % 7.5 % (3.8-10.2); NEUT % 74.5 % (42.8-82.8); PLATELET COUNT 327 10^3/uL (134-434); RBC 3.99 M/mm3 (3.60-5.2); RDW 13.9 % (11.6-15.6); WHITE BLOOD COUNT 11.9 K/mm3 (4.0-10.0)
[2023-11-26] MEDS ORDERED: IBUPROFEN 600 MG TABLET (FP) PO ONE (23:30)
[2023-11-26 23:35] LABS: INR 1.01 (0.83-1.09); PROTHROMBIN TIME (PATIENT) 11.4 SEC (9.7-13.0)
[2023-11-26] MEDS: IBUPROFEN 600 MG TABLET (FP) PO ONE (23:35)
[2023-11-26 23:38] LABS: ACTIVATED PTT 31.9 SECONDS (25.2-36.5)
[2023-11-26 23:44] LABS: METHADONE, UR POSITIVE (NEGATIVE); URINE AMPHETAMINES NEGATIVE (NEGATIVE)
[2023-11-26 23:47] LABS: CHLORIDE 99 mmol/L (98-107); POTASSIUM 4.4 mmol/L (3.5-5.1); SODIUM 138 mmol/L (136-145)
[2023-11-26 23:48] LABS: CALCIUM 9.4 mg/dL (8.5-10.1)
[2023-11-26 23:49] LABS: ALBUMIN 3.7 g/dl (3.4-5.0); ANION GAP 8 mmol/L (4-13); BLOOD UREA NITROGEN 11.4 mg/dL (7-18); CO2 30 mmol/L (21-32); GLUCOSE,RANDOM 78 mg/dL (74-106)
[2023-11-26 23:52] LABS: CREATININE 0.7 mg/dL (0.55-1.3); SGOT/AST 28 U/L (15-37); SGPT/ALT 27 U/L (13-61)
[2023-11-26 23:54] LABS: BILIRUBIN,TOTAL 0.2 mg/dL (0.2-1); TOT PROT 7.8 g/dl (6.4-8.2)
[2023-11-26 23:55] LABS: ALK PHOS 107 U/L (45-117)
[2023-11-27 00:43] LABS: HIV INTERPRETATION NEGATIVE (NEGATIVE)
[2023-11-27] MEDS ORDERED: clonazePAM 0.5 MG TABLET ONE ×3 (02:20→19:48)
[2023-11-27] MEDS: clonazePAM 0.5 MG TABLET PO ONE ×3 (02:26→19:49)
[2023-11-27] MEDS ORDERED: methaDONE HCL 40 MG DISPERSABLE TABLET ONE (10:54)
[2023-11-27] MEDS ORDERED: methaDONE HCL 10 MG TABLET ONE (10:54)
[2023-11-27] MEDS: methaDONE HCL 10 MG TABLET PO ONE (11:14)
[2023-11-27] MEDS ORDERED: ARIPiprazole 5 MG TABLET ONE (11:49)
[2023-11-27] MEDS ORDERED: GABAPENTIN 400 MG CAPSULE ONE ×2 (11:49→19:48)
[2023-11-27] MEDS ORDERED: VENLAFAXINE HCL 75 MG TABLET ONE (11:49)
[2023-11-27] MEDS ORDERED: DIVALPROEX SODIUM 250 MG TABLET E.C. ONE (11:50)
[2023-11-27] MEDS: ARIPiprazole 15 MG TABLET PO ONE (11:56)
[2023-11-27] MEDS: VENLAFAXINE HCL 75 MG TABLET PO ONE (11:57)
[2023-11-27] MEDS: GABAPENTIN 400 MG CAPSULE PO ONE ×2 (11:57→19:50)
[2023-11-27] MEDS: DIVALPROEX SODIUM 250 MG TABLET E.C. PO ONE (12:05)
[2023-11-27] MEDS: QUEtiapine FUMARATE 100 MG TABLET (FP) PO ONE (12:17)
[2023-11-27] MEDS ORDERED: IBUPROFEN 400 MG TABLET (FP) PO ONE (12:27)
[2023-11-27] MEDS: IBUPROFEN 400 MG TABLET (FP) PO ONE (12:31)
[2023-11-27] MEDS: NICOTINE POLACRILEX 2 MG GUM BUC ONE (23:22)
[2023-11-28 05:30] VITALS: BMI 32.3
[2023-11-28] MEDS: GABAPENTIN 300 MG CAPSULE PO SCH (06:58)
[2023-11-28] MEDS: clonazePAM 0.5 MG TABLET PO SCH (06:58)
[2023-11-28 08:31] LABS: HEMATOCRIT 36.2 % (32.4-45.2); HEMOGLOBIN 12.3 GM/dL (10.7-15.3); MCH 33.3 pg (25.7-33.7); MEAN CELL VOLUME 98.1 fl (80-96); MEAN PLT VOLUME 7.8 fl (7.5-11.1); PLATELET COUNT 308 10^3/uL (134-434); RBC 3.69 M/mm3 (3.60-5.2); RDW 13.8 % (11.6-15.6); WHITE BLOOD COUNT 6.8 K/mm3 (4.0-10.0)
[2023-11-28 08:50] LABS: POTASSIUM 3.7 mmol/L (3.5-5.1)
[2023-11-28 08:58] LABS: BLOOD UREA NITROGEN 13.5 mg/dL (7-18)
[2023-11-28 08:59] LABS: ALBUMIN 3.4 g/dl (3.4-5.0); MAGNESIUM 2.2 mg/dL (1.8-2.4)
[2023-11-28 09:02] LABS: CREATININE 0.7 mg/dL (0.55-1.3); PHOSPHOROUS 4.2 mg/dL (2.5-4.9)
[2023-11-28 09:03] LABS: BILIRUBIN,TOTAL 0.3 mg/dL (0.2-1); TOT PROT 7.4 g/dl (6.4-8.2)
[2023-11-28] MEDS: AMOX TR/POT CLAV 875MG/125MG TABLETS (FP) PO SCH (09:27)
[2023-11-28] MEDS: busPIRone HCL 10 MG TABLET (FP) PO SCH (09:29)
[2023-11-28] MEDS: VENLAFAXINE HCL 75 MG E.R. CAPSULES PO SCH (09:29)
[2023-11-28] MEDS: ENOXAPARIN NA (PORCINE) 40 MG/0.4 ML DISP.SYRIN SQ SCH (09:29)
[2023-11-28] MEDS ORDERED: METHADONE PO SCH (10:00)
[2023-11-28] MEDS: ARIPiprazole 15 MG TABLET PO SCH (13:28)
[2023-11-28] MEDS: NICOTINE POLACRILEX 2 MG GUM BUC PRN (13:29)
[2023-11-28] MEDS: methaDONE HCL 10 MG TABLET PO ONE (13:50)
[2023-11-28] MEDS: CHLORHEXIDINE GLUCONATE 0.12% 15ML CUP MM SCH (17:23)
[2023-11-28] MEDS ORDERED: QUEtiapine FUMARATE 400 MG TABLET PO SCH (22:00)
[2023-11-28] MEDS: ATORVASTATIN CA 80 MG TABLET (FP) PO SCH (23:02)
[2023-11-28] MEDS: QUEtiapine FUMARATE 50 MG TABLET PO SCH (23:02)
[2023-11-28] MEDS: DIVALPROEX NA *ER* EXTEND REL 250 MG TABLET.SA PO SCH (23:02)
[2023-11-29 08:28] LABS: HEMATOCRIT 34.2 % (32.4-45.2); HEMOGLOBIN 11.7 GM/dL (10.7-15.3); MCH 33.7 pg (25.7-33.7); MCHC 34.2 g/dl (32.0-36.0); MEAN CELL VOLUME 98.6 fl (80-96); MEAN PLT VOLUME 7.9 fl (7.5-11.1); PLATELET COUNT 296 10^3/uL (134-434); RBC 3.47 M/mm3 (3.60-5.2); RDW 13.8 % (11.6-15.6); WHITE BLOOD COUNT 6.5 K/mm3 (4.0-10.0)
[2023-11-29 08:55] LABS: POTASSIUM 3.8 mmol/L (3.5-5.1)
[2023-11-29 09:04] LABS: CALCIUM 8.6 mg/dL (8.5-10.1)
[2023-11-29 09:05] LABS: BLOOD UREA NITROGEN 14.4 mg/dL (7-18)
[2023-11-29 09:08] LABS: CREATININE 0.6 mg/dL (0.55-1.3)
[2023-11-29] MEDS: methaDONE HCL 40 MG DISPERSABLE TABLET PO SCH (16:25)
[2023-12-01 22:24] VITALS: RESP 18
[2023-12-02 11:55] VITALS: BP 104/68; PULSE 80; TEMP 98.1
== END 2023-12-02 13:26 | disposition home or self-care (01) ==
LOC: JER 21:24 → JERBED 11-28 00:30 → J7W 11-28 02:55
PROVIDERS: ADMIT Internal Medicine; ATTEND Internal Medicine
DX: R45.851 Suicidal ideations (principal); K04.7 Periapical abscess without sinus; R44.0 Auditory hallucinations; F31.9 Bipolar disorder, unspecified; F43.10 Post-traumatic stress disorder, unspecified; F45.22 Body dysmorphic disorder; F19.21 Other psychoactive substance dependence, in remission; Z91.030 Bee allergy status
CPT/HCPCS: 36415; 70487-TC; 80048; 80053; 80164; 80307; 81003; 83735; 84100; 84702; 84703; 85025; 85027; 85610; 85730; 86803; 87389; 93005; 93010; 99285-25; G0378; Q9967